=== PATIENT | female | born 1970 | race African-American/Black ===

== ENCOUNTER 2021-09-05 12:58 | Inpatient (IN) | payer MEDICAID ==
[~2021-09-05] VITALS: Ht 165.1 cm; Wt 121.7 kg
[2021-09-05 13:45] LABS: Basophils # (auto) 0.1 10 ^3/uL (0-0.2); Basophils % (auto) 0.8 % (0.0-2.0); Eosinophils # (auto) 0.1 10 ^3/uL (0-0.8); Hemoglobin 10.7 g/dL (12.2-16.2); Monocytes # (auto) 0.6 10 ^3/uL (0-1.3); Neutrophils # (auto) 3.4 10 ^3/uL (1.6-8.6)
[2021-09-05 13:47] LABS: Eosinophils % (auto) 1.1 % (0.0-7.0); Hematocrit 34.1 % (36.0-46.0); Lymphocytes # (auto) 2.5 10 ^3/uL (0.4-5.4); Lymphocytes % (auto) 37.9 % (10.0-50.0); Mean Corpuscular Hemoglobin 25.3 pg (28.0-32.0); Mean Corpuscular Hgb Conc. 31.5 g/dL (32.0-36.0); Mean Corpuscular Volume 80.6 fL (80.0-100.0); Neutrophils % (auto) 51.2 % (37.0-80.0); Nucleated Red Blood Cells % 0.1 %; Red Blood Cells 4.24 10^6/uL (4.0-5.20); Red Cell Distribution Width 21.5 % (11.8-14.3); White Blood Cell 6.6 10^3/uL (4.4-10.8)
[2021-09-05 14:01] LABS: Albumin 2.7 g/dL (3.4-5.0); Calcium 8.2 mg/dL (8.5-10.1); Magnesium 2.2 mg/dL (1.6-2.6); Potassium 3.4 mmol/L (3.5-5.1)
[2021-09-05 14:08] LABS: Total Protein 7.5 g/dL (6.4-8.2)
[2021-09-05] MEDS ORDERED: FUROSEMIDE 40 MG/4 ML VIAL IV ONE (16:30)
[2021-09-05] MEDS ORDERED: SPIRONOLACTONE 25 MG TAB PO ONE (16:30)
[2021-09-05] MEDS ORDERED: NITROGLYCERIN 0.4 MG SL TAB SL PRN ×2 (17:15→18:30)
[2021-09-05] MEDS ORDERED: MORPHINE SULFATE INJECTION 2 MG/ML SYRG IV PRN ×3 (17:15→18:30)
[2021-09-05] MEDS ORDERED: BUMETANIDE 2.5mg/10ml (0.25 mg/ml) INJ IV ONE (17:30)
[2021-09-05] MEDS ORDERED: POTASSIUM CHL 20 Meq TABLET PO ONE (18:00)
[2021-09-05] MEDS ORDERED: IOHEXOL 350 MG/ML 100ML IJ ONE (18:19)
[2021-09-05] MEDS ORDERED: ACETAMINOPHEN 325 MG TAB PO PRN (18:30)
[2021-09-05] MEDS ORDERED: BUDESONIDE (INHALATION) 0.5 MG/2 ML NEB NEB ONE (18:30)
[2021-09-05] MEDS ORDERED: LORazepam 0.5 MG TAB PO PRN (18:30)
[2021-09-05] MEDS ORDERED: levoFLOXacin 750MG 150 ML IV ONE (18:30)
[2021-09-05] MEDS ORDERED: IPRATROPIUM BROM 0.5 MG/2.5ML INH SOL NEB ONE (18:30)
[2021-09-05] MEDS ORDERED: METOPROLOL TARTRATE 25 MG TAB PO ONE (18:30)
[2021-09-05] MEDS ORDERED: DOCUSATE SOD 100 MG CAP PO PRN (18:30)
[2021-09-05] MEDS ORDERED: FAMOTIDINE (10MG/ML) 2ML VL IV ONE (18:30)
[2021-09-05] MEDS ORDERED: LABETALOL HCL 5 MG/ML 4ML SYRINGE IV PRN (18:30)
[2021-09-05] MEDS ORDERED: ASPirin 81 mg TAB PO ONE (18:30)
[2021-09-05 19:11] LABS: INR 1.2 (0.9-1.15)
[2021-09-05] MEDS: METOPROLOL TARTRATE 25 MG TAB PO SCH (22:00)
[2021-09-05] MEDS ORDERED: IPRATROPIUM BROM 0.5 MG/2.5ML INH SOL NEB SCH (22:00)
[2021-09-05] MEDS ORDERED: BUDESONIDE (INHALATION) 0.5 MG/2 ML NEB NEB SCH (22:00)
[2021-09-05 22:46] VITALS: BP 96/70
[2021-09-05 23:00] VITALS: BP 96/70
[2021-09-05] MEDS: FAMOTIDINE (10MG/ML) 2ML VL IV SCH (23:24)
[2021-09-05] MEDS: APIXABAN 5 MG TAB PO SCH (23:29)
[2021-09-05] MEDS: ATORVASTATIN 20 MG TAB PO SCH (23:29)
[2021-09-05] MEDS ORDERED: SPIR25TA8 PO (23:31)
[2021-09-05] MEDS ORDERED: LEVO750T64 PO (23:31)
[2021-09-05] MEDS ORDERED: ATOR-47 PO (23:31)
[2021-09-05] MEDS ORDERED: FERR325T20 PO (23:31)
[2021-09-05] MEDS ORDERED: FURO80TA3 PO (23:31)
[2021-09-05] MEDS ORDERED: CARV3.1240 PO (23:31)
[2021-09-06] MEDS ORDERED: LEVALBUTEROL HCL 1.25 MG/3 ML NEB NEB SCH
[2021-09-06 00:38] LABS: Urine Bacteria FEW /hpf (None Seen); Urine Blood 3+ /uL (Negative); Urine WBC 106 /hpf (0 - 5)
[2021-09-06 00:45] LABS: Amphetamine Screen, Urine NEGATIVE (NEGATIVE); Barbiturate Scree,Urine NEGATIVE (NEGATIVE); Benzodiazephine Screen, Urine NEGATIVE (NEGATIVE); Cannabinoid Screen, Urine POSITIVE (NEGATIVE); Cocaine Screen, Urine NEGATIVE (NEGATIVE); Opiate Scree,Urine NEGATIVE (NEGATIVE); Phencyclidine Screen, Urine POSITIVE (NEGATIVE); Urine Specific Gravity > 1.050 (1.001-1.035)
[2021-09-06 05:00] VITALS: BP 100/71
[2021-09-06] MEDS ORDERED: BUMETANIDE 2.5mg/10ml (0.25 mg/ml) INJ IV SCH (06:00)
[2021-09-06] MEDS: ALUM & MAG HYDROX-SIMETH LIQ(MAALOX) 30 ML PO PRN (06:47)
[2021-09-06 07:05] LABS: Basophils # (auto) 0.1 10 ^3/uL (0-0.2); Basophils % (auto) 1.2 % (0.0-2.0); Eosinophils # (auto) 0 10 ^3/uL (0-0.8); Eosinophils % (auto) 0.5 % (0.0-7.0); Hematocrit 35.6 % (36.0-46.0); Hemoglobin 11.3 g/dL (12.2-16.2); Lymphocytes # (auto) 3.4 10 ^3/uL (0.4-5.4); Lymphocytes % (auto) 41.2 % (10.0-50.0); Mean Corpuscular Hemoglobin 25.8 pg (28.0-32.0); Mean Corpuscular Hgb Conc. 31.8 g/dL (32.0-36.0); Monocytes % (auto) 11.9 % (0.0-12.0); Neutrophils # (auto) 3.7 10 ^3/uL (1.6-8.6); Neutrophils % (auto) 45.2 % (37.0-80.0); Nucleated Red Blood Cells % 0.1 %; Red Blood Cells 4.39 10^6/uL (4.0-5.20); White Blood Cell 8.2 10^3/uL (4.4-10.8)
[2021-09-06 07:06] LABS: Red Cell Distribution Width 20.9 % (11.8-14.3)
[2021-09-06 07:21] LABS: Potassium 4.5 mmol/L (3.5-5.1)
[2021-09-06 07:25] LABS: INR 1.47 (0.9-1.15); Partial Thromboplastin Time 34.1 sec (23.6-33.0)
[2021-09-06 07:34] LABS: Albumin 2.8 g/dL (3.4-5.0); BUN/Creatinine Ratio 13.6; Bilirubin, Total 1.2 mg/dL (0.2-1.0); Calcium 8.4 mg/dL (8.5-10.1); Magnesium 2.4 mg/dL (1.6-2.6); Phosphorus 3.3 mg/dL (2.5-4.90); Total Protein 7.6 g/dL (6.4-8.2)
[2021-09-06 08:30] VITALS: BP 112/60
[2021-09-06] MEDS: ASPirin 81 mg TAB PO SCH (09:34)
[2021-09-06] MEDS: FAMOTIDINE (10MG/ML) 2ML VL IV SCH ×2 (09:34→22:58)
[2021-09-06] MEDS: APIXABAN 5 MG TAB PO SCH (09:34)
[2021-09-06] MEDS: METOPROLOL TARTRATE 25 MG TAB PO SCH (09:36)
[2021-09-06] MEDS ORDERED: LISINOPRIL 5 MG TAB PO SCH (10:00)
[2021-09-06] MEDS ORDERED: POTASSIUM CHL 20 Meq TABLET PO SCH (10:00)
[2021-09-06] MEDS ORDERED: levoFLOXacin 750MG 150 ML IV SCH (10:00)
[2021-09-06 12:30] VITALS: BP 88/62
[2021-09-06] MEDS ORDERED: VANCOMYCIN PER PHARMACY 0 MG IV SCH (13:15)
[2021-09-06] MEDS ORDERED: POTASSIUM EFFERVESENT TAB 25 MEQ PO ONE (13:30)
[2021-09-06] MEDS ORDERED: VANCOMYCIN 1GM/250ML 250 ML IV ONE (13:37)
[2021-09-06] MEDS: DOBUTamine 1000MCG/ML 250 ML IV SCH (13:42)
[2021-09-06] MEDS ORDERED: VANCOMYCIN HCL 500MG/5ML ORAL SOL PO ONE (13:45)
[2021-09-06] MEDS: CEFEPIME 1 GM in SODIUM CHL 0.9% 50 ML IV SCH (14:47)
[2021-09-06] MEDS: metroNIDAZOLE 500 MG TAB PO SCH ×2 (14:47→22:58)
[2021-09-06 16:04] LABS: Urine Bacteria FEW /hpf (None Seen); Urine Blood 3+ /uL (Negative); Urine Hyaline Cast FEW /lpf (0 - 2); Urine Mucus FEW (None Seen); Urine Specific Gravity 1.042 (1.001-1.035); Urine WBC 129 /hpf (0 - 5)
[2021-09-06 16:15] LABS: Protein, Urine 236.7 mg/dL (0.0-11.9)
[2021-09-06 17:00] VITALS: BP 92/57
[2021-09-06] MEDS: FUROSEMIDE 40 MG/4 ML VIAL IV SCH (17:22)
[2021-09-06] MEDS: VANCOMYCIN HCL 500MG/5ML ORAL SOL PO SCH ×2 (17:23→22:58)
[2021-09-06 22:00] VITALS: BP 90/64
[2021-09-06] MEDS: ATORVASTATIN 20 MG TAB PO SCH (22:59)
[2021-09-06] MEDS: CARVEDILOL 3.125 MG TAB PO SCH (23:02)
[2021-09-07] VITALS (7 sets, daily range): BP systolic 93–116; BP diastolic 57–76
[2021-09-07] MEDS: CEFEPIME 1 GM in SODIUM CHL 0.9% 50 ML IV SCH ×2 (00:18→06:03)
[2021-09-07] MEDS: DOBUTamine 1000MCG/ML 250 ML IV SCH ×3 (01:57→22:42)
[2021-09-07] MEDS ORDERED: VANCOMYCIN 1GM/250ML 250 ML IV SCH (05:00)
[2021-09-07] MEDS: metroNIDAZOLE 500 MG TAB PO SCH (06:03)
[2021-09-07] MEDS: FUROSEMIDE 40 MG/4 ML VIAL IV SCH ×2 (06:03→18:00)
[2021-09-07] MEDS: VANCOMYCIN HCL 500MG/5ML ORAL SOL PO SCH ×2 (06:11→12:11)
[2021-09-07 06:48] LABS: Basophils # (auto) 0.1 10 ^3/uL (0-0.2); Eosinophils # (auto) 0.1 10 ^3/uL (0-0.8); Hemoglobin 10.1 g/dL (12.2-16.2); Lymphocytes # (auto) 2.1 10 ^3/uL (0.4-5.4); Nucleated Red Blood Cells % 0.1 %
[2021-09-07 06:52] LABS: Basophils % (auto) 1.3 % (0.0-2.0); Eosinophils % (auto) 1.7 % (0.0-7.0); Hematocrit 31.8 % (36.0-46.0); Lymphocytes % (auto) 28.1 % (10.0-50.0); Mean Corpuscular Hemoglobin 25.4 pg (28.0-32.0); Mean Corpuscular Hgb Conc. 31.8 g/dL (32.0-36.0); Mean Corpuscular Volume 79.8 fL (80.0-100.0); Monocytes # (auto) 0.8 10 ^3/uL (0-1.3); Monocytes % (auto) 11.4 % (0.0-12.0); Neutrophils # (auto) 4.3 10 ^3/uL (1.6-8.6); Neutrophils % (auto) 57.5 % (37.0-80.0); Red Blood Cells 3.98 10^6/uL (4.0-5.20); White Blood Cell 7.4 10^3/uL (4.4-10.8)
[2021-09-07 07:08] LABS: BUN/Creatinine Ratio 13.4; Calcium 8.1 mg/dL (8.5-10.1); Potassium 4.3 mmol/L (3.5-5.1)
[2021-09-07] MEDS: FAMOTIDINE (10MG/ML) 2ML VL IV SCH (10:29)
[2021-09-07] MEDS: ENOXAPARIN SOD 40 MG/0.4 ML SYRINGE SC SCH (10:30)
[2021-09-07] MEDS: ASPirin 81 mg TAB PO SCH (10:30)
[2021-09-07] MEDS: CARVEDILOL 3.125 MG TAB PO SCH ×2 (10:30→23:34)
[2021-09-07] MEDS ORDERED: DEXTROSE (50%) 50ML SYRG IV PRN (13:45)
[2021-09-07 14:04] LABS: Hepatitis A Ab IgM Negative
[2021-09-07 14:20] LABS: Hepatitis B Core IgM Negative
[2021-09-07] MEDS: InsuLIN REG 1unit/0.01ml Soln (100units/ml) SC SCH ×2 (17:00→22:00)
[2021-09-07] MEDS: ACCU-CHEK COMFORT CURVE STRIP VI SCH ×2 (17:00→22:00)
[2021-09-07] MEDS: VANCOMYCIN HCL 125MG/5ML ORAL SOL PO SCH ×2 (18:00→23:33)
[2021-09-07 19:49] LABS: INR 1.44 (0.9-1.15); Partial Thromboplastin Time 34.3 sec (23.6-33.0)
[2021-09-07] MEDS ORDERED: CEFEPIME 1 GM in SODIUM CHL 0.9% 50 ML IV SCH (22:00)
[2021-09-07] MEDS: ATORVASTATIN 20 MG TAB PO SCH (23:34)
[2021-09-07] MEDS: SACUBITRIL-VALSARTAN 24mg/26mg TAB PO SCH (23:34)
[2021-09-08] MEDS: ENOXAPARIN SOD 40 MG/0.4 ML SYRINGE SC SCH ×3 (01:05→21:02)
[2021-09-08 05:00] VITALS: BP 108/59
[2021-09-08] MEDS: VANCOMYCIN HCL 125MG/5ML ORAL SOL PO SCH ×4 (06:00→20:48)
[2021-09-08 06:25] LABS: Basophils # (auto) 0.1 10 ^3/uL (0-0.2); Eosinophils # (auto) 0.1 10 ^3/uL (0-0.8); Monocytes # (auto) 0.7 10 ^3/uL (0-1.3); Neutrophils # (auto) 3.9 10 ^3/uL (1.6-8.6); Nucleated Red Blood Cells % 0.1 %; White Blood Cell 6.9 10^3/uL (4.4-10.8)
[2021-09-08 06:29] LABS: Basophils % (auto) 1.2 % (0.0-2.0); Eosinophils % (auto) 1.9 % (0.0-7.0); Hematocrit 32.2 % (36.0-46.0); Hemoglobin 10.2 g/dL (12.2-16.2); Lymphocytes # (auto) 2.1 10 ^3/uL (0.4-5.4); Lymphocytes % (auto) 30.8 % (10.0-50.0); Mean Corpuscular Hgb Conc. 31.7 g/dL (32.0-36.0); Mean Corpuscular Volume 78.8 fL (80.0-100.0); Neutrophils % (auto) 56.1 % (37.0-80.0); Red Blood Cells 4.08 10^6/uL (4.0-5.20); Red Cell Distribution Width 20.8 % (11.8-14.3)
[2021-09-08 06:34] LABS: INR 1.44 (0.9-1.15)
[2021-09-08 06:46] LABS: Potassium 4.5 mmol/L (3.5-5.1)
[2021-09-08 06:52] LABS: Albumin 2.6 g/dL (3.4-5.0); BUN/Creatinine Ratio 14.2; Bilirubin, Total 1.3 mg/dL (0.2-1.0); Calcium 8.5 mg/dL (8.5-10.1); Magnesium 1.9 mg/dL (1.6-2.6)
[2021-09-08] MEDS: InsuLIN REG 1unit/0.01ml Soln (100units/ml) SC SCH ×4 (07:00→21:13)
[2021-09-08] MEDS: ACCU-CHEK COMFORT CURVE STRIP VI SCH ×4 (07:20→21:14)
[2021-09-08] MEDS: FUROSEMIDE 40 MG/4 ML VIAL IV SCH ×2 (07:34→18:19)
[2021-09-08 09:06] VITALS: BP 96/54
[2021-09-08] MEDS: CARVEDILOL 3.125 MG TAB PO SCH ×2 (10:00→22:00)
[2021-09-08] MEDS: SACUBITRIL-VALSARTAN 24mg/26mg TAB PO SCH (10:00)
[2021-09-08] MEDS: ASPirin 81 mg TAB PO SCH (10:00)
[2021-09-08 13:14] VITALS: BP 99/73
[2021-09-08] MEDS ORDERED: CHOLECALCIFEROL (VITD3) 2,000 UNIT CAP/TAB PO ONE (13:15)
[2021-09-08] MEDS ORDERED: MAGNESIUM SULFATE 1GM/100ML 100 ML IV ONE (13:15)
[2021-09-08 16:32] VITALS: BP 104/66
[2021-09-08] MEDS: ATORVASTATIN 20 MG TAB PO SCH (20:49)
[2021-09-08] MEDS ORDERED: SACUBITRIL-VALSARTAN 24mg/26mg TAB PO SCH (22:00)
[2021-09-09 05:00] VITALS: BP 98/64
[2021-09-09] MEDS: FUROSEMIDE 40 MG/4 ML VIAL IV SCH ×3 (05:21→18:11)
[2021-09-09] MEDS: VANCOMYCIN HCL 125MG/5ML ORAL SOL PO SCH ×4 (06:05→21:54)
[2021-09-09] MEDS: InsuLIN REG 1unit/0.01ml Soln (100units/ml) SC SCH ×4 (06:16→22:00)
[2021-09-09] MEDS: ACCU-CHEK COMFORT CURVE STRIP VI SCH ×4 (06:17→21:54)
[2021-09-09 07:07] LABS: Albumin 2.5 g/dL (3.4-5.0); Calcium 8.2 mg/dL (8.5-10.1); Magnesium 2.6 mg/dL (1.6-2.6)
[2021-09-09 07:11] LABS: BUN/Creatinine Ratio 15.9; Total Protein 6.5 g/dL (6.4-8.2)
[2021-09-09] MEDS: ASPirin 81 mg TAB PO SCH (09:28)
[2021-09-09] MEDS: CHOLECALCIFEROL (VITD3) 2,000 UNIT CAP/TAB PO SCH (09:29)
[2021-09-09] MEDS: ENOXAPARIN SOD 40 MG/0.4 ML SYRINGE SC SCH ×2 (09:31→21:52)
[2021-09-09 09:46] VITALS: BP 87/64
[2021-09-09] MEDS ORDERED: DOXYCYCLINE 100 MG TAB/CAP PO ONE (10:45)
[2021-09-09] MEDS: CARVEDILOL 3.125 MG TAB PO SCH ×2 (12:17→22:00)
[2021-09-09 13:12] VITALS: BP 91/49
[2021-09-09] MEDS: CEFEPIME 1 GM in SODIUM CHL 0.9% 50 ML IV SCH ×2 (14:00→21:52)
[2021-09-09 16:46] VITALS: BP 105/70
[2021-09-09] MEDS: ATORVASTATIN 20 MG TAB PO SCH (21:53)
[2021-09-09] MEDS: DOXYCYCLINE 100 MG TAB/CAP PO SCH (21:53)
[2021-09-09 22:00] VITALS: BP 90/65
[2021-09-09] MEDS: ALUM & MAG HYDROX-SIMETH LIQ(MAALOX) 30 ML PO PRN (22:08)
[2021-09-10] MEDS: ONDANSETRON HCL 4 MG/2 ML VIAL IV PRN (01:09)
[2021-09-10 05:00] VITALS: BP 106/76
[2021-09-10] MEDS: ACCU-CHEK COMFORT CURVE STRIP VI SCH ×4 (06:05→23:12)
[2021-09-10] MEDS: VANCOMYCIN HCL 125MG/5ML ORAL SOL PO SCH ×4 (06:05→23:40)
[2021-09-10] MEDS: CEFEPIME 1 GM in SODIUM CHL 0.9% 50 ML IV SCH ×3 (06:05→23:44)
[2021-09-10] MEDS: FUROSEMIDE 40 MG/4 ML VIAL IV SCH ×2 (06:06→18:16)
[2021-09-10] MEDS: InsuLIN REG 1unit/0.01ml Soln (100units/ml) SC SCH ×4 (06:35→22:00)
[2021-09-10 08:06] LABS: Immunoglobulin G, Serum 1488 mg/dL (586-1602)
[2021-09-10 08:49] LABS: Albumin 2.5 g/dL (3.4-5.0); Calcium 8.1 mg/dL (8.5-10.1); Potassium 4.3 mmol/L (3.5-5.1)
[2021-09-10 08:53] LABS: BUN/Creatinine Ratio 16.8; Bilirubin, Total 1.1 mg/dL (0.2-1.0); Total Protein 6.5 g/dL (6.4-8.2)
[2021-09-10 09:00] VITALS: BP 118/59
[2021-09-10] MEDS: ENOXAPARIN SOD 40 MG/0.4 ML SYRINGE SC SCH ×2 (10:00→23:41)
[2021-09-10] MEDS: ASPirin 81 mg TAB PO SCH (10:24)
[2021-09-10] MEDS: CARVEDILOL 3.125 MG TAB PO SCH ×2 (10:25→23:41)
[2021-09-10] MEDS: CHOLECALCIFEROL (VITD3) 2,000 UNIT CAP/TAB PO SCH (10:25)
[2021-09-10] MEDS: DOXYCYCLINE 100 MG TAB/CAP PO SCH ×2 (10:26→23:41)
[2021-09-10 13:00] VITALS: BP 102/77
[2021-09-10 17:00] VITALS: BP 108/77
[2021-09-10 21:47] VITALS: BP 100/56
[2021-09-10] MEDS: ATORVASTATIN 20 MG TAB PO SCH (23:41)
[2021-09-11 05:00] VITALS: BP 100/68
[2021-09-11] MEDS: VANCOMYCIN HCL 125MG/5ML ORAL SOL PO SCH ×4 (06:06→22:42)
[2021-09-11] MEDS: CEFEPIME 1 GM in SODIUM CHL 0.9% 50 ML IV SCH ×3 (06:06→22:49)
[2021-09-11] MEDS: FUROSEMIDE 40 MG/4 ML VIAL IV SCH (06:06)
[2021-09-11] MEDS: ACCU-CHEK COMFORT CURVE STRIP VI SCH ×4 (06:40→22:51)
[2021-09-11] MEDS: InsuLIN REG 1unit/0.01ml Soln (100units/ml) SC SCH ×4 (06:40→22:00)
[2021-09-11 09:22] VITALS: BP 105/75
[2021-09-11 09:33] LABS: Potassium 4.3 mmol/L (3.5-5.1)
[2021-09-11 09:52] LABS: Albumin 2.7 g/dL (3.4-5.0); Bilirubin, Total 1.2 mg/dL (0.2-1.0); Calcium 8.4 mg/dL (8.5-10.1); Total Protein 7.1 g/dL (6.4-8.2)
[2021-09-11] MEDS: CARVEDILOL 3.125 MG TAB PO SCH ×2 (10:00→22:46)
[2021-09-11] MEDS: ENOXAPARIN SOD 40 MG/0.4 ML SYRINGE SC SCH (10:00)
[2021-09-11] MEDS: CHOLECALCIFEROL (VITD3) 2,000 UNIT CAP/TAB PO SCH (10:00)
[2021-09-11] MEDS: DOXYCYCLINE 100 MG TAB/CAP PO SCH ×2 (10:00→22:46)
[2021-09-11] MEDS: ASPirin 81 mg TAB PO SCH (10:00)
[2021-09-11] MEDS ORDERED: VANCOMYCIN PER PHARMACY 0 MG IV SCH (11:00)
[2021-09-11] MEDS: HYDROcodone-ACET 5/325MG TAB PO PRN ×2 (11:03→22:44)
[2021-09-11] MEDS ORDERED: OMNIPAQUE ORAL SOLN 500ml 12mg/ml PO ONE (11:52)
[2021-09-11] MEDS ORDERED: ENOXAPARIN SOD 40 MG/0.4 ML SYRINGE SC ONE (12:00)
[2021-09-11] MEDS ORDERED: VANCOMYCIN 1GM/250ML 250 ML IV SCH (12:00)
[2021-09-11] MEDS ORDERED: IOHEXOL 300 MG/ML 100ML BOTTLE IJ ONE (15:27)
[2021-09-11 17:11] VITALS: BP 99/64
[2021-09-11 22:00] VITALS: BP 98/65
[2021-09-11] MEDS: ATORVASTATIN 20 MG TAB PO SCH (22:45)
[2021-09-11] MEDS: ONDANSETRON HCL 4 MG/2 ML VIAL IV PRN (22:58)
[2021-09-12 05:00] VITALS: BP 96/60
[2021-09-12] MEDS: HYDROcodone-ACET 5/325MG TAB PO PRN ×3 (05:22→21:36)
[2021-09-12] MEDS: ONDANSETRON HCL 4 MG/2 ML VIAL IV PRN ×2 (05:22→21:35)
[2021-09-12] MEDS: CEFEPIME 1 GM in SODIUM CHL 0.9% 50 ML IV SCH ×3 (05:41→21:32)
[2021-09-12 06:21] LABS: Potassium 4.8 mmol/L (3.5-5.1)
[2021-09-12 06:26] LABS: Albumin 2.6 g/dL (3.4-5.0); BUN/Creatinine Ratio 17.1; Calcium 8.6 mg/dL (8.5-10.1)
[2021-09-12] MEDS: VANCOMYCIN HCL 125MG/5ML ORAL SOL PO SCH ×4 (06:28→21:34)
[2021-09-12] MEDS: ACCU-CHEK COMFORT CURVE STRIP VI SCH ×4 (06:30→22:25)
[2021-09-12] MEDS: InsuLIN REG 1unit/0.01ml Soln (100units/ml) SC SCH ×4 (06:30→22:00)
[2021-09-12 06:52] LABS: Bilirubin, Total 1.2 mg/dL (0.2-1.0); Total Protein 6.6 g/dL (6.4-8.2)
[2021-09-12 08:29] VITALS: BP 97/65
[2021-09-12] MEDS: ASPirin 81 mg TAB PO SCH (09:40)
[2021-09-12] MEDS: DOXYCYCLINE 100 MG TAB/CAP PO SCH ×2 (09:41→21:35)
[2021-09-12] MEDS: CARVEDILOL 3.125 MG TAB PO SCH ×2 (09:41→22:00)
[2021-09-12] MEDS: ENOXAPARIN SOD 40 MG/0.4 ML SYRINGE SC SCH (09:42)
[2021-09-12] MEDS: CHOLECALCIFEROL (VITD3) 2,000 UNIT CAP/TAB PO SCH (09:42)
[2021-09-12 12:38] VITALS: BP 107/62
[2021-09-12 17:16] VITALS: BP 86/52
[2021-09-12] MEDS: FUROSEMIDE 40 MG/4 ML VIAL IV SCH (17:32)
[2021-09-12] MEDS: ATORVASTATIN 20 MG TAB PO SCH (21:34)
[2021-09-12 22:00] VITALS: BP 96/66
[2021-09-12] MEDS ORDERED: APIXABAN 5 MG TAB PO SCH (22:00)
[2021-09-13 04:39] VITALS: BP 94/58
[2021-09-13] MEDS: ONDANSETRON HCL 4 MG/2 ML VIAL IV PRN ×2 (05:02→13:52)
[2021-09-13] MEDS: CEFEPIME 1 GM in SODIUM CHL 0.9% 50 ML IV SCH ×3 (05:52→22:04)
[2021-09-13] MEDS: VANCOMYCIN HCL 125MG/5ML ORAL SOL PO SCH ×4 (05:52→22:03)
[2021-09-13] MEDS: ACCU-CHEK COMFORT CURVE STRIP VI SCH ×4 (05:58→21:31)
[2021-09-13] MEDS: InsuLIN REG 1unit/0.01ml Soln (100units/ml) SC SCH ×4 (06:00→21:30)
[2021-09-13 06:39] LABS: Albumin 2.3 g/dL (3.4-5.0); BUN/Creatinine Ratio 14.1; Calcium 8.1 mg/dL (8.5-10.1); Potassium 4.5 mmol/L (3.5-5.1)
[2021-09-13 06:42] LABS: Bilirubin, Total 1.1 mg/dL (0.2-1.0); Total Protein 6.3 g/dL (6.4-8.2)
[2021-09-13 09:00] VITALS: BP 96/66
[2021-09-13] MEDS: CARVEDILOL 3.125 MG TAB PO SCH ×2 (10:00→22:00)
[2021-09-13] MEDS: FUROSEMIDE 40 MG/4 ML VIAL IV SCH ×2 (10:03→17:48)
[2021-09-13] MEDS: ASPirin 81 mg TAB PO SCH (10:08)
[2021-09-13] MEDS: DOXYCYCLINE 100 MG TAB/CAP PO SCH ×2 (10:08→22:02)
[2021-09-13] MEDS: CHOLECALCIFEROL (VITD3) 2,000 UNIT CAP/TAB PO SCH (10:08)
[2021-09-13] MEDS: ENOXAPARIN SOD 40 MG/0.4 ML SYRINGE SC SCH (10:09)
[2021-09-13 12:50] VITALS: BP 89/54
[2021-09-13 17:01] VITALS: BP 109/64
[2021-09-13] MEDS: HYDROcodone-ACET 5/325MG TAB PO PRN (17:44)
[2021-09-13 22:00] VITALS: BP 95/67
[2021-09-13] MEDS: ATORVASTATIN 20 MG TAB PO SCH (22:02)
[2021-09-14 05:00] VITALS: BP 105/69
[2021-09-14] MEDS: FUROSEMIDE 40 MG/4 ML VIAL IV SCH ×2 (05:25→17:55)
[2021-09-14] MEDS: CEFEPIME 1 GM in SODIUM CHL 0.9% 50 ML IV SCH ×3 (05:25→21:12)
[2021-09-14] MEDS: VANCOMYCIN HCL 125MG/5ML ORAL SOL PO SCH ×4 (05:26→21:12)
[2021-09-14] MEDS: ACCU-CHEK COMFORT CURVE STRIP VI SCH ×4 (06:33→21:13)
[2021-09-14] MEDS: InsuLIN REG 1unit/0.01ml Soln (100units/ml) SC SCH ×4 (06:33→22:00)
[2021-09-14 07:23] LABS: Potassium 4.5 mmol/L (3.5-5.1)
[2021-09-14 07:31] LABS: Albumin 2.3 g/dL (3.4-5.0); BUN/Creatinine Ratio 12.7; Bilirubin, Total 1.3 mg/dL (0.2-1.0); Calcium 7.9 mg/dL (8.5-10.1); Total Protein 6.5 g/dL (6.4-8.2)
[2021-09-14 08:19] VITALS: BP 122/80
[2021-09-14] MEDS: CARVEDILOL 3.125 MG TAB PO SCH ×2 (10:18→21:12)
[2021-09-14] MEDS: DOXYCYCLINE 100 MG TAB/CAP PO SCH ×2 (10:18→21:13)
[2021-09-14] MEDS: CHOLECALCIFEROL (VITD3) 2,000 UNIT CAP/TAB PO SCH (10:18)
[2021-09-14] MEDS: ASPirin 81 mg TAB PO SCH (10:18)
[2021-09-14] MEDS: ENOXAPARIN SOD 40 MG/0.4 ML SYRINGE SC SCH (10:18)
[2021-09-14 13:00] VITALS: BP 103/84
[2021-09-14] MEDS: HYDROcodone-ACET 5/325MG TAB PO PRN ×2 (14:35→21:13)
[2021-09-14] MEDS: ONDANSETRON HCL 4 MG/2 ML VIAL IV PRN (14:41)
[2021-09-14 15:26] LABS: INR 1.46 (0.9-1.15); Partial Thromboplastin Time 34.4 sec (23.6-33.0)
[2021-09-14 16:38] VITALS: BP 90/68
[2021-09-14] MEDS: ATORVASTATIN 20 MG TAB PO SCH (21:13)
[2021-09-14 22:00] VITALS: BP 87/61
[2021-09-14 23:14] VITALS: BP 92/49
[2021-09-15 05:00] VITALS: BP 95/62
[2021-09-15] MEDS: FUROSEMIDE 40 MG/4 ML VIAL IV SCH ×2 (05:42→17:34)
[2021-09-15] MEDS: CEFEPIME 1 GM in SODIUM CHL 0.9% 50 ML IV SCH (05:43)
[2021-09-15] MEDS: InsuLIN REG 1unit/0.01ml Soln (100units/ml) SC SCH ×4 (05:43→21:10)
[2021-09-15] MEDS: ACCU-CHEK COMFORT CURVE STRIP VI SCH ×4 (05:43→21:10)
[2021-09-15] MEDS: VANCOMYCIN HCL 125MG/5ML ORAL SOL PO SCH ×4 (05:43→21:10)
[2021-09-15 06:30] LABS: Albumin 2.3 g/dL (3.4-5.0); Calcium 8.1 mg/dL (8.5-10.1); Potassium 4.7 mmol/L (3.5-5.1)
[2021-09-15 06:33] LABS: BUN/Creatinine Ratio 12.6; Bilirubin, Total 1.3 mg/dL (0.2-1.0); Total Protein 6.6 g/dL (6.4-8.2)
[2021-09-15 09:00] VITALS: BP 96/64
[2021-09-15] MEDS: ASPirin 81 mg TAB PO SCH (10:14)
[2021-09-15] MEDS: CARVEDILOL 3.125 MG TAB PO SCH ×2 (10:14→21:09)
[2021-09-15] MEDS: CHOLECALCIFEROL (VITD3) 2,000 UNIT CAP/TAB PO SCH (10:14)
[2021-09-15] MEDS: DOXYCYCLINE 100 MG TAB/CAP PO SCH ×2 (10:14→21:09)
[2021-09-15] MEDS: ENOXAPARIN SOD 40 MG/0.4 ML SYRINGE SC SCH (10:15)
[2021-09-15 12:50] VITALS: BP 97/70
[2021-09-15] MEDS: CEFEPIME 2 GM in SODIUM CHL 0.9% 50 ML IV SCH (14:30)
[2021-09-15 16:37] VITALS: BP 85/66
[2021-09-15] MEDS: ATORVASTATIN 20 MG TAB PO SCH (21:09)
[2021-09-15 22:00] VITALS: BP 92/60
[2021-09-15] MEDS: ONDANSETRON HCL 4 MG/2 ML VIAL IV PRN (22:09)
[2021-09-15] MEDS: HYDROcodone-ACET 5/325MG TAB PO PRN (22:10)
[2021-09-16] MEDS: CEFEPIME 2 GM in SODIUM CHL 0.9% 50 ML IV SCH ×2 (01:26→14:30)
[2021-09-16 05:30] VITALS: BP 85/57
[2021-09-16] MEDS: FUROSEMIDE 40 MG/4 ML VIAL IV SCH (05:33)
[2021-09-16] MEDS: ACCU-CHEK COMFORT CURVE STRIP VI SCH ×4 (05:34→21:37)
[2021-09-16] MEDS: InsuLIN REG 1unit/0.01ml Soln (100units/ml) SC SCH ×4 (05:34→21:37)
[2021-09-16] MEDS: VANCOMYCIN HCL 125MG/5ML ORAL SOL PO SCH ×4 (05:34→21:27)
[2021-09-16 06:05] VITALS: BP 91/58
[2021-09-16 09:00] VITALS: BP 99/73
[2021-09-16] MEDS: CHOLECALCIFEROL (VITD3) 2,000 UNIT CAP/TAB PO SCH (09:24)
[2021-09-16] MEDS: DOXYCYCLINE 100 MG TAB/CAP PO SCH ×2 (09:24→21:28)
[2021-09-16] MEDS: ASPirin 81 mg TAB PO SCH (09:24)
[2021-09-16] MEDS: CARVEDILOL 3.125 MG TAB PO SCH (09:25)
[2021-09-16] MEDS: ENOXAPARIN SOD 40 MG/0.4 ML SYRINGE SC SCH (09:25)
[2021-09-16 10:18] LABS: Hematocrit 30.1 % (36.0-46.0); Hemoglobin 9.7 g/dL (12.2-16.2); Mean Corpuscular Hemoglobin 25.4 pg (28.0-32.0); Mean Corpuscular Hgb Conc. 32.2 g/dL (32.0-36.0); Red Blood Cells 3.81 10^6/uL (4.0-5.20)
[2021-09-16 10:19] LABS: Red Cell Distribution Width 21.5 % (11.8-14.3)
[2021-09-16 10:22] LABS: Basophils % (manual) 0 (0.0-2.0); Blast Cells 0; Metamyelocytes % 0; Myelocytes % 0; Promyelocytes % 0; Reactive Lymphocytes 0
[2021-09-16 10:38] LABS: Calcium 8.3 mg/dL (8.5-10.1); Potassium 4.6 mmol/L (3.5-5.1)
[2021-09-16 10:44] LABS: Albumin 2.2 g/dL (3.4-5.0); BUN/Creatinine Ratio 12.8; Bilirubin, Total 1.2 mg/dL (0.2-1.0); Total Protein 6.8 g/dL (6.4-8.2)
[2021-09-16 12:19] LABS: Band Neutrophils % (manual) 3; Eosinophils % (manual) 1 (0-7); Lymphocytes % (manual) 37 (10.0-50.0); Monocytes % (manual) 5 (0-12)
[2021-09-16 13:00] VITALS: BP 107/57
[2021-09-16] MEDS ORDERED: FUROSEMIDE 40 MG/4 ML VIAL IV SCH (13:00)
[2021-09-16] MEDS ORDERED: FUROSEMIDE INJECTION 100 MG in SODIUM CHL 0.9% 100 ML IV SCH (13:30)
[2021-09-16 17:00] VITALS: BP 104/65
[2021-09-16 17:22] LABS: Urine Bacteria FEW /hpf (None Seen); Urine Blood 2+ /uL (Negative); Urine Budding Yeast MANY /hpf (None Seen); Urine Hyaline Cast FEW /lpf (0 - 2); Urine Specific Gravity 1.022 (1.001-1.035); Urine WBC 49 /hpf (0 - 5); Urine WBC Clumps PRESENT /hpf (None Seen)
[2021-09-16] MEDS ORDERED: SPIRONOLACTONE 25 MG TAB PO SCH (18:00)
[2021-09-16] MEDS: DOBUTamine 1000MCG/ML 250 ML IV SCH (19:15)
[2021-09-16 20:44] LABS: Sodium Urine < 5 mmol/L (40-220)
[2021-09-16 20:49] LABS: Creatinine, Urine 218 mg/dL (30.0-125.0); Protein, Urine 237.5 mg/dL (0.0-11.9)
[2021-09-16] MEDS: ATORVASTATIN 20 MG TAB PO SCH (21:28)
[2021-09-16 22:00] VITALS: BP 115/66
[2021-09-16] MEDS ORDERED: SACUBITRIL-VALSARTAN 24mg/26mg TAB PO SCH (22:00)
[2021-09-16] MEDS: FUROSEMIDE INJECTION 100 MG in SODIUM CHL 0.9% 100 ML IV SCH (22:30)
[2021-09-16] MEDS: ONDANSETRON HCL 4 MG/2 ML VIAL IV PRN (23:56)
[2021-09-17] VITALS (10 sets, daily range): BP systolic 90–110; BP diastolic 60–77
[2021-09-17] MEDS: CEFEPIME 2 GM in SODIUM CHL 0.9% 50 ML IV SCH ×3 (02:07→21:33)
[2021-09-17 02:16] LABS: Urine Bacteria FEW /hpf (None Seen); Urine Blood 2+ /uL (Negative); Urine Specific Gravity 1.017 (1.001-1.035); Urine WBC 12 /hpf (0 - 5)
[2021-09-17] MEDS ORDERED: DIGOXIN (250MCG/ML) 2 ML AMPULE IV ONE ×2 (05:15→05:45)
[2021-09-17] MEDS: InsuLIN REG 1unit/0.01ml Soln (100units/ml) SC SCH ×4 (06:37→22:00)
[2021-09-17] MEDS: FUROSEMIDE INJECTION 100 MG in SODIUM CHL 0.9% 100 ML IV SCH ×2 (06:37→15:00)
[2021-09-17] MEDS: VANCOMYCIN HCL 125MG/5ML ORAL SOL PO SCH ×4 (06:37→21:33)
[2021-09-17] MEDS: ACCU-CHEK COMFORT CURVE STRIP VI SCH ×4 (06:37→22:03)
[2021-09-17 06:54] LABS: Basophils # (auto) 0.1 10 ^3/uL (0-0.2); Eosinophils # (auto) 0 10 ^3/uL (0-0.8); Hematocrit 28.9 % (36.0-46.0); Monocytes # (auto) 1.1 10 ^3/uL (0-1.3); Monocytes % (auto) 12.2 % (0.0-12.0)
[2021-09-17 06:55] LABS: Basophils % (auto) 1.2 % (0.0-2.0); Eosinophils % (auto) 0.6 % (0.0-7.0); Hemoglobin 9.4 g/dL (12.2-16.2); Lymphocytes # (auto) 2.1 10 ^3/uL (0.4-5.4); Lymphocytes % (auto) 23.8 % (10.0-50.0); Mean Corpuscular Hemoglobin 25.7 pg (28.0-32.0); Mean Corpuscular Hgb Conc. 32.6 g/dL (32.0-36.0); Mean Corpuscular Volume 78.8 fL (80.0-100.0); Neutrophils # (auto) 5.5 10 ^3/uL (1.6-8.6); Neutrophils % (auto) 62.2 % (37.0-80.0); Nucleated Red Blood Cells % 0.1 %; Red Blood Cells 3.67 10^6/uL (4.0-5.20); White Blood Cell 8.8 10^3/uL (4.4-10.8)
[2021-09-17 07:11] LABS: Red Cell Distribution Width 20.5 % (11.8-14.3)
[2021-09-17 07:20] LABS: Albumin 2.2 g/dL (3.4-5.0); BUN/Creatinine Ratio 14.8; Bilirubin, Total 1.3 mg/dL (0.2-1.0); Calcium 8.3 mg/dL (8.5-10.1); Total Protein 6.4 g/dL (6.4-8.2)
[2021-09-17] MEDS: ASPirin 81 mg TAB PO SCH (10:00)
[2021-09-17] MEDS: ENOXAPARIN SOD 40 MG/0.4 ML SYRINGE SC SCH (10:00)
[2021-09-17] MEDS: DOXYCYCLINE 100 MG TAB/CAP PO SCH (10:00)
[2021-09-17] MEDS: CHOLECALCIFEROL (VITD3) 2,000 UNIT CAP/TAB PO SCH (10:08)
[2021-09-17] MEDS: DOBUTamine 1000MCG/ML 250 ML IV SCH (10:09)
[2021-09-17] MEDS ORDERED: CHOLESTYRAMINE 4 GM POWDER GT SCH (11:00)
[2021-09-17] MEDS: CHOLESTYRAMINE 4 GM POWDER PO SCH (12:21)
[2021-09-17] MEDS: ATORVASTATIN 20 MG TAB PO SCH (21:33)
[2021-09-18] MEDS: DOBUTamine 1000MCG/ML 250 ML IV SCH ×2 (00:19→15:55)
[2021-09-18] MEDS: FUROSEMIDE INJECTION 100 MG in SODIUM CHL 0.9% 100 ML IV SCH ×3 (00:23→21:24)
[2021-09-18] MEDS: CEFEPIME 2 GM in SODIUM CHL 0.9% 50 ML IV SCH (02:35)
[2021-09-18] MEDS: ONDANSETRON HCL 4 MG/2 ML VIAL IV PRN ×2 (03:31→15:56)
[2021-09-18 05:00] VITALS: BP 102/53
[2021-09-18] MEDS: VANCOMYCIN HCL 125MG/5ML ORAL SOL PO SCH (06:00)
[2021-09-18] MEDS: InsuLIN REG 1unit/0.01ml Soln (100units/ml) SC SCH ×4 (06:34→21:44)
[2021-09-18] MEDS: ACCU-CHEK COMFORT CURVE STRIP VI SCH ×4 (06:35→21:44)
[2021-09-18 08:00] VITALS: BP 93/65
[2021-09-18] MEDS: ASPirin 81 mg TAB PO SCH (10:00)
[2021-09-18] MEDS: ENOXAPARIN SOD 40 MG/0.4 ML SYRINGE SC SCH (10:00)
[2021-09-18] MEDS: CHOLESTYRAMINE 4 GM POWDER PO SCH (10:31)
[2021-09-18] MEDS: CHOLECALCIFEROL (VITD3) 2,000 UNIT CAP/TAB PO SCH (10:32)
[2021-09-18 11:48] LABS: Basophils # (auto) 0.1 10 ^3/uL (0-0.2); Eosinophils # (auto) 0.1 10 ^3/uL (0-0.8)
[2021-09-18 11:53] LABS: Basophils % (auto) 1.4 % (0.0-2.0); Eosinophils % (auto) 0.6 % (0.0-7.0); Hematocrit 28.3 % (36.0-46.0); Hemoglobin 9.2 g/dL (12.2-16.2); Lymphocytes # (auto) 1.8 10 ^3/uL (0.4-5.4); Lymphocytes % (auto) 19.6 % (10.0-50.0); Mean Corpuscular Hemoglobin 25.6 pg (28.0-32.0); Mean Corpuscular Hgb Conc. 32.6 g/dL (32.0-36.0); Mean Corpuscular Volume 78.5 fL (80.0-100.0); Monocytes % (auto) 11.3 % (0.0-12.0); Neutrophils % (auto) 67.1 % (37.0-80.0); Red Blood Cells 3.61 10^6/uL (4.0-5.20); Red Cell Distribution Width 20.5 % (11.8-14.3)
[2021-09-18 11:59] LABS: Potassium 3.5 mmol/L (3.5-5.1)
[2021-09-18 12:19] LABS: Albumin 2.3 g/dL (3.4-5.0); BUN/Creatinine Ratio 15.4; Bilirubin, Total 1.1 mg/dL (0.2-1.0); Calcium 8.2 mg/dL (8.5-10.1); Total Protein 6.6 g/dL (6.4-8.2)
[2021-09-18 12:30] VITALS: BP 117/75
[2021-09-18] MEDS ORDERED: POTASSIUM EFFERVESENT TAB 25 MEQ PO ONE (14:30)
[2021-09-18 16:52] VITALS: BP 98/73
[2021-09-18] MEDS: ATORVASTATIN 20 MG TAB PO SCH (21:48)
[2021-09-18 22:00] VITALS: BP 109/65
[2021-09-19] MEDS: DOBUTamine 1000MCG/ML 250 ML IV SCH ×2 (00:39→16:38)
[2021-09-19 05:00] VITALS: BP 99/73
[2021-09-19] MEDS: FUROSEMIDE INJECTION 100 MG in SODIUM CHL 0.9% 100 ML IV SCH ×2 (06:41→16:38)
[2021-09-19] MEDS: InsuLIN REG 1unit/0.01ml Soln (100units/ml) SC SCH ×4 (06:42→21:46)
[2021-09-19] MEDS: ACCU-CHEK COMFORT CURVE STRIP VI SCH ×4 (06:42→21:46)
[2021-09-19 09:21] VITALS: BP 112/62
[2021-09-19] MEDS: ASPirin 81 mg TAB PO SCH (09:59)
[2021-09-19] MEDS: CHOLECALCIFEROL (VITD3) 2,000 UNIT CAP/TAB PO SCH (09:59)
[2021-09-19] MEDS: ENOXAPARIN SOD 40 MG/0.4 ML SYRINGE SC SCH (10:00)
[2021-09-19] MEDS: CHOLESTYRAMINE 4 GM POWDER PO SCH (11:36)
[2021-09-19 13:08] VITALS: BP 109/61
[2021-09-19] MEDS ORDERED: SODIUM CHLORIDE 0.9% 250 ML IV ONE (16:45)
[2021-09-19] MEDS ORDERED: LABETALOL HCL 5 MG/ML 4ML SYRINGE IV ONE (16:45)
[2021-09-19 17:17] VITALS: BP 121/65
[2021-09-19] MEDS: HYDROcodone-ACET 5/325MG TAB PO PRN (20:48)
[2021-09-19] MEDS: ATORVASTATIN 20 MG TAB PO SCH (21:46)
[2021-09-19 22:00] VITALS: BP 110/68
[2021-09-20] MEDS: FUROSEMIDE INJECTION 100 MG in SODIUM CHL 0.9% 100 ML IV SCH ×2 (03:20→14:32)
[2021-09-20 05:00] VITALS: BP 101/63
[2021-09-20] MEDS: DOBUTamine 1000MCG/ML 250 ML IV SCH ×2 (05:57→20:53)
[2021-09-20] MEDS: InsuLIN REG 1unit/0.01ml Soln (100units/ml) SC SCH ×2 (05:58→11:30)
[2021-09-20] MEDS: ACCU-CHEK COMFORT CURVE STRIP VI SCH ×2 (05:58→11:55)
[2021-09-20 08:00] VITALS: BP 107/72
[2021-09-20] MEDS: ENOXAPARIN SOD 40 MG/0.4 ML SYRINGE SC SCH (10:00)
[2021-09-20] MEDS: HYDROcodone-ACET 5/325MG TAB PO PRN ×2 (10:03→21:02)
[2021-09-20] MEDS: ONDANSETRON HCL 4 MG/2 ML VIAL IV PRN ×2 (10:03→21:02)
[2021-09-20] MEDS: ASPirin 81 mg TAB PO SCH (10:03)
[2021-09-20] MEDS: CHOLECALCIFEROL (VITD3) 2,000 UNIT CAP/TAB PO SCH (10:04)
[2021-09-20 10:20] LABS: Potassium 3.1 mmol/L (3.5-5.1)
[2021-09-20 10:23] LABS: BUN/Creatinine Ratio 14.7
[2021-09-20 10:46] LABS: Basophils # (auto) 0.1 10 ^3/uL (0-0.2); Basophils % (auto) 1.3 % (0.0-2.0); Eosinophils # (auto) 0.1 10 ^3/uL (0-0.8); Eosinophils % (auto) 0.9 % (0.0-7.0); Hematocrit 28.5 % (36.0-46.0); Lymphocytes # (auto) 1.7 10 ^3/uL (0.4-5.4); Lymphocytes % (auto) 24.8 % (10.0-50.0); Mean Corpuscular Hemoglobin 25.1 pg (28.0-32.0); Mean Corpuscular Hgb Conc. 31.4 g/dL (32.0-36.0); Mean Corpuscular Volume 79.9 fL (80.0-100.0); Monocytes # (auto) 0.8 10 ^3/uL (0-1.3); Monocytes % (auto) 11.6 % (0.0-12.0); Neutrophils # (auto) 4.3 10 ^3/uL (1.6-8.6); Neutrophils % (auto) 61.4 % (37.0-80.0); Nucleated Red Blood Cells % 0.1 %; Red Blood Cells 3.57 10^6/uL (4.0-5.20); Red Cell Distribution Width 20.8 % (11.8-14.3)
[2021-09-20] MEDS: CHOLESTYRAMINE 4 GM POWDER PO SCH (11:55)
[2021-09-20 12:30] VITALS: BP 108/79
[2021-09-20] MEDS ORDERED: POTASSIUM CHL 20 Meq TABLET PO ONE (14:15)
[2021-09-20] MEDS ORDERED: diphenhdrAMINE HCL 25 MG CAP PO ONE (14:30)
[2021-09-20 14:51] LABS: INR 1.4 (0.9-1.15); Partial Thromboplastin Time 32.2 sec (23.6-33.0)
[2021-09-20 17:14] VITALS: BP 103/61
[2021-09-20] MEDS ORDERED: BUMETANIDE 2.5mg/10ml (0.25 mg/ml) INJ IV SCH (18:00)
[2021-09-20] MEDS ORDERED: diphenhdrAMINE HCL 25 MG CAP PO PRN (22:00)
[2021-09-20] MEDS: ATORVASTATIN 20 MG TAB PO SCH (23:01)
[2021-09-20] MEDS: HEPARIN SODIUM (PORCINE) 5000 UNITS/ML 1ML VIAL SC SCH (23:03)
[2021-09-21] MEDS: FUROSEMIDE INJECTION 100 MG in SODIUM CHL 0.9% 100 ML IV SCH ×3 (00:09→21:58)
[2021-09-21] MEDS ORDERED: METOPROLOL SUCCINATE XL 50 MG TAB PO ONE (04:00)
[2021-09-21 05:00] VITALS: BP 95/72
[2021-09-21] MEDS: HEPARIN SODIUM (PORCINE) 5000 UNITS/ML 1ML VIAL SC SCH ×3 (05:50→21:46)
[2021-09-21] MEDS ORDERED: dilTIAZem 25 MG/5 ML VIAL IV ONE (08:45)
[2021-09-21 09:00] VITALS: BP 108/72
[2021-09-21] MEDS: CHOLECALCIFEROL (VITD3) 2,000 UNIT CAP/TAB PO SCH (09:31)
[2021-09-21] MEDS: ASPirin 81 mg TAB PO SCH (09:31)
[2021-09-21] MEDS: HYDROcodone-ACET 5/325MG TAB PO PRN ×2 (10:31→21:54)
[2021-09-21] MEDS: dilTIAZem HCL 180MG ER CAP PO SCH (10:31)
[2021-09-21 10:32] LABS: Basophils # (auto) 0.1 10 ^3/uL (0-0.2); Eosinophils # (auto) 0.1 10 ^3/uL (0-0.8); Neutrophils # (auto) 4.6 10 ^3/uL (1.6-8.6); Nucleated Red Blood Cells % 0.1 %; Red Cell Distribution Width 20.9 % (11.8-14.3); White Blood Cell 7.6 10^3/uL (4.4-10.8)
[2021-09-21 10:36] LABS: Eosinophils % (auto) 1.2 % (0.0-7.0); Hemoglobin 9.8 g/dL (12.2-16.2); Lymphocytes % (auto) 25.8 % (10.0-50.0); Mean Corpuscular Hemoglobin 24.6 pg (28.0-32.0); Mean Corpuscular Hgb Conc. 30.7 g/dL (32.0-36.0); Mean Corpuscular Volume 80.3 fL (80.0-100.0); Monocytes # (auto) 0.8 10 ^3/uL (0-1.3); Monocytes % (auto) 10.7 % (0.0-12.0); Neutrophils % (auto) 61.3 % (37.0-80.0); Red Blood Cells 3.99 10^6/uL (4.0-5.20)
[2021-09-21 11:08] LABS: Potassium 3.9 mmol/L (3.5-5.1)
[2021-09-21 11:15] LABS: Albumin 2.8 g/dL (3.4-5.0); Bilirubin, Total 1.2 mg/dL (0.2-1.0); Calcium 8.2 mg/dL (8.5-10.1); Magnesium 1.6 mg/dL (1.6-2.6); Total Protein 7.3 g/dL (6.4-8.2)
[2021-09-21] MEDS: CHOLESTYRAMINE 4 GM POWDER PO SCH (12:33)
[2021-09-21 13:00] VITALS: BP 106/75
[2021-09-21 17:00] VITALS: BP 95/63
[2021-09-21] MEDS: ONDANSETRON HCL 4 MG/2 ML VIAL IV PRN (18:45)
[2021-09-21] MEDS: ATORVASTATIN 20 MG TAB PO SCH (21:44)
[2021-09-21 22:00] VITALS: BP 84/66
[2021-09-22 00:05] VITALS: BP 96/73
[2021-09-22 03:03] VITALS: BP 103/70
[2021-09-22 05:00] VITALS: BP 98/53
[2021-09-22] MEDS: FUROSEMIDE INJECTION 100 MG in SODIUM CHL 0.9% 100 ML IV SCH ×2 (05:00→15:44)
[2021-09-22] MEDS: HEPARIN SODIUM (PORCINE) 5000 UNITS/ML 1ML VIAL SC SCH ×3 (05:59→21:05)
[2021-09-22 09:00] VITALS: BP 97/65
[2021-09-22] MEDS: ASPirin 81 mg TAB PO SCH (09:26)
[2021-09-22] MEDS: CHOLECALCIFEROL (VITD3) 2,000 UNIT CAP/TAB PO SCH (09:28)
[2021-09-22] MEDS: dilTIAZem HCL 180MG ER CAP PO SCH (09:30)
[2021-09-22] MEDS: HYDROcodone-ACET 5/325MG TAB PO PRN ×2 (09:30→21:05)
[2021-09-22] MEDS: CHOLESTYRAMINE 4 GM POWDER PO SCH (11:33)
[2021-09-22 13:11] VITALS: BP 100/68
[2021-09-22] MEDS: ATORVASTATIN 20 MG TAB PO SCH (21:05)
[2021-09-22] MEDS: ONDANSETRON HCL 4 MG/2 ML VIAL IV PRN (21:17)
[2021-09-22 22:15] VITALS: BP 103/73
[2021-09-23] MEDS: FUROSEMIDE INJECTION 100 MG in SODIUM CHL 0.9% 100 ML IV SCH (02:16)
[2021-09-23 05:12] VITALS: BP 102/68
[2021-09-23] MEDS: HEPARIN SODIUM (PORCINE) 5000 UNITS/ML 1ML VIAL SC SCH ×3 (05:19→21:45)
[2021-09-23 09:00] VITALS: BP 110/67
[2021-09-23] MEDS: ASPirin 81 mg TAB PO SCH (09:24)
[2021-09-23] MEDS: CHOLECALCIFEROL (VITD3) 2,000 UNIT CAP/TAB PO SCH (09:24)
[2021-09-23] MEDS: CHOLESTYRAMINE 4 GM POWDER PO SCH (11:57)
[2021-09-23 13:00] VITALS: BP 102/63
[2021-09-23] MEDS: ONDANSETRON HCL 4 MG/2 ML VIAL IV PRN ×2 (13:29→17:39)
[2021-09-23 15:33] LABS: Basophils # (auto) 0.1 10 ^3/uL (0-0.2); Eosinophils # (auto) 0.1 10 ^3/uL (0-0.8); Eosinophils % (auto) 0.9 % (0.0-7.0); Hematocrit 30.3 % (36.0-46.0); Hemoglobin 9.5 g/dL (12.2-16.2); Neutrophils # (auto) 5.2 10 ^3/uL (1.6-8.6); Red Blood Cells 3.82 10^6/uL (4.0-5.20); White Blood Cell 8.4 10^3/uL (4.4-10.8)
[2021-09-23 15:36] LABS: Basophils % (auto) 1.7 % (0.0-2.0); Lymphocytes % (auto) 23.3 % (10.0-50.0); Mean Corpuscular Hemoglobin 24.8 pg (28.0-32.0); Mean Corpuscular Hgb Conc. 31.2 g/dL (32.0-36.0); Mean Corpuscular Volume 79.3 fL (80.0-100.0); Monocytes % (auto) 12.2 % (0.0-12.0); Neutrophils % (auto) 61.9 % (37.0-80.0); Nucleated Red Blood Cells % 0.2 %
[2021-09-23 15:40] LABS: Red Cell Distribution Width 20.8 % (11.8-14.3)
[2021-09-23 15:55] LABS: Albumin 2.8 g/dL (3.4-5.0); Calcium 8.3 mg/dL (8.5-10.1); Potassium 4.1 mmol/L (3.5-5.1)
[2021-09-23 16:00] LABS: BUN/Creatinine Ratio 12.4
[2021-09-23 16:27] VITALS: BP 112/70
[2021-09-23] MEDS ORDERED: BUMETANIDE 2.5mg/10ml (0.25 mg/ml) INJ IV SCH (18:00)
[2021-09-23] MEDS: ATORVASTATIN 20 MG TAB PO SCH (20:04)
[2021-09-23] MEDS: HYDROcodone-ACET 5/325MG TAB PO PRN (20:04)
[2021-09-23 21:51] VITALS: BP 104/69
[2021-09-24 04:58] VITALS: BP 100/58
[2021-09-24] MEDS: HEPARIN SODIUM (PORCINE) 5000 UNITS/ML 1ML VIAL SC SCH ×2 (06:13→14:20)
[2021-09-24 07:46] LABS: BUN/Creatinine Ratio 11.9; Calcium 8.8 mg/dL (8.5-10.1); Potassium 4.1 mmol/L (3.5-5.1)
[2021-09-24 08:59] VITALS: BP 102/85
[2021-09-24] MEDS: ASPirin 81 mg TAB PO SCH (09:59)
[2021-09-24] MEDS: CHOLECALCIFEROL (VITD3) 2,000 UNIT CAP/TAB PO SCH (10:00)
[2021-09-24] MEDS ORDERED: ASPI1TAB20 PO (10:58)
[2021-09-24] MEDS ORDERED: ATOR40TA52 PO (10:58)
[2021-09-24] MEDS ORDERED: FURO80TA3 PO (10:59)
[2021-09-24] MEDS ORDERED: LINA5TAB PO (11:08)
[2021-09-24] MEDS: CHOLESTYRAMINE 4 GM POWDER PO SCH (11:13)
[2021-09-24] MEDS ORDERED: GLIP5TAB12 PO (15:48)
== END 2021-09-24 16:15 | disposition home or self-care (01) | DRG 194 ==
LOC: ER 12:58 → TELE 17:01 → TELE-WESTW 22:45
PROVIDERS: ADMIT Hospitalist; ATTEND Internal Medicine Nephrology
PROC: 05HF33Z Insertion of Infusion Device into Left Cephalic Vein, Percutaneous Approach (ICD-10-PCS; 2021-09-07)
PROC: B54NZZA Ultrasonography of Left Upper Extremity Veins, Guidance (ICD-10-PCS; 2021-09-07)
PROC: 0W993ZZ Drainage of Right Pleural Cavity, Percutaneous Approach (ICD-10-PCS; principal; 2021-09-08)
DX: I13.0 Hypertensive heart and chronic kidney disease with heart failure and stage 1 through stage 4 chronic kidney disease, or unspecified chronic kidney disease (principal); J96.21 Acute and chronic respiratory failure with hypoxia; I21.A1 Myocardial infarction type 2; K85.90 Acute pancreatitis without necrosis or infection, unspecified; D68.9 Coagulation defect, unspecified; J18.9 Pneumonia, unspecified organism; J91.8 Pleural effusion in other conditions classified elsewhere; A04.72 Enterocolitis due to Clostridium difficile, not specified as recurrent; I50.43 Acute on chronic combined systolic (congestive) and diastolic (congestive) heart failure; N17.9 Acute kidney failure, unspecified; I42.0 Dilated cardiomyopathy; J44.0 Chronic obstructive pulmonary disease with (acute) lower respiratory infection; J45.901 Unspecified asthma with (acute) exacerbation; R18.8 Other ascites; E87.6 Hypokalemia; E11.65 Type 2 diabetes mellitus with hyperglycemia; E66.01 Morbid (severe) obesity due to excess calories; K21.9 Gastro-esophageal reflux disease without esophagitis; K76.0 Fatty (change of) liver, not elsewhere classified; D64.9 Anemia, unspecified; N18.31 Chronic kidney disease, stage 3a; Z68.41 Body mass index [BMI] 40.0-44.9, adult; E11.22 Type 2 diabetes mellitus with diabetic chronic kidney disease; E55.9 Vitamin D deficiency, unspecified; E78.5 Hyperlipidemia, unspecified; F15.90 Other stimulant use, unspecified, uncomplicated; I34.0 Nonrheumatic mitral (valve) insufficiency; I89.0 Lymphedema, not elsewhere classified; R79.89 Other specified abnormal findings of blood chemistry; R80.9 Proteinuria, unspecified; F19.10 Other psychoactive substance abuse, uncomplicated; J98.11 Atelectasis; R04.0 Epistaxis; Z20.822 Contact with and (suspected) exposure to COVID-19; Z83.3 Family history of diabetes mellitus; Z86.718 Personal history of other venous thrombosis and embolism; Z87.01 Personal history of pneumonia (recurrent); Z87.891 Personal history of nicotine dependence; Z91.19 Patient's noncompliance with other medical treatment and regimen; Z88.1 Allergy status to other antibiotic agents; I42.7 Cardiomyopathy due to drug and external agent; T50.905A Adverse effect of unspecified drugs, medicaments and biological substances, initial encounter; Y92.89 Other specified places as the place of occurrence of the external cause
CPT/HCPCS: 36415; 36600; 71045; 71275; 74176; 74177; 76705; 76775; 76830; 76856; 76942; 80048; 80053; 80061; 80307; 81001; 82150; 82306; 82570; 82784; 82805; 82962; 83036; 83520; 83690; 83735; 83880; 83883; 84100; 84155; 84156; 84165; 84300; 84443; 84484; 84702; 85007; 85025; 85027; 85610; 85652; 85730; 86038; 86141; 86160; 86225; 86256; 86334; 86703; 86705; 86709; 86803; 86850; 86900; 86901; 87040; 87081; 87086; 87205; 87340; 87426; 87493; 89051; 89060; 93005; 93306; 93970; 96365; 96375; 97110; 97116; 97530; 99291; G0378; J1815; J1956; J2405; J3490

== ENCOUNTER 2021-09-28 08:24 | Inpatient (IN) | payer MEDICAID ==
[~2021-09-28] VITALS: Ht 157.5 cm; Wt 131.9 kg
[~2021-09-28 08:24] MED LIST: ASPI1TAB20 PO; ATOR40TA52 PO; CARV3.1240 PO; FERR325T20 PO; FURO80TA3 PO; GLIP5TAB12 PO
[2021-09-28 10:13] LABS: Hematocrit 33.6 % (36.0-46.0); Hemoglobin 10.3 g/dL (12.2-16.2); Mean Corpuscular Hemoglobin 25.1 pg (28.0-32.0); Mean Corpuscular Hgb Conc. 30.8 g/dL (32.0-36.0); Mean Corpuscular Volume 81.3 fL (80.0-100.0); Red Blood Cells 4.13 10^6/uL (4.0-5.20)
[2021-09-28 10:19] LABS: Red Cell Distribution Width 20.2 % (11.8-14.3)
[2021-09-28 10:20] LABS: Band Neutrophils % (manual) 0; Basophils % (manual) 0 (0.0-2.0); Blast Cells 0; Metamyelocytes % 0; Myelocytes % 0; Promyelocytes % 0; Reactive Lymphocytes 0
[2021-09-28 10:27] LABS: INR 1.53 (0.9-1.15); Partial Thromboplastin Time 25.6 sec (23.6-33.0)
[2021-09-28 10:36] LABS: Albumin 3.1 g/dL (3.4-5.0); Calcium 8.6 mg/dL (8.5-10.1); Potassium 4.2 mmol/L (3.5-5.1)
[2021-09-28 10:41] LABS: BUN/Creatinine Ratio 12.9; Bilirubin, Total 1.8 mg/dL (0.2-1.0); Eosinophils % (manual) 4 (0-7); Lymphocytes % (manual) 49 (10.0-50.0); Monocytes % (manual) 1 (0-12)
[2021-09-28] MEDS ORDERED: FUROSEMIDE 40 MG/4 ML VIAL IV ONE (14:45)
[2021-09-28 15:05] LABS: Urine WBC None Seen /hpf (0 - 5)
[2021-09-28 15:27] LABS: Alcohol, Urine < 3.0 mg/dL (0-10); Amphetamine Screen, Urine NEGATIVE (NEGATIVE); Barbiturate Scree,Urine NEGATIVE (NEGATIVE); Benzodiazephine Screen, Urine NEGATIVE (NEGATIVE); Cannabinoid Screen, Urine POSITIVE (NEGATIVE); Cocaine Screen, Urine NEGATIVE (NEGATIVE); Phencyclidine Screen, Urine POSITIVE (NEGATIVE)
[2021-09-28 15:34] LABS: Opiate Scree,Urine NEGATIVE (NEGATIVE)
[2021-09-28] MEDS ORDERED: ONDANSETRON HCL 4 MG/2 ML VIAL IV ONE (16:15)
[2021-09-28 16:31] LABS: Urine Amorphous Crystal FEW /hpf (None Seen); Urine Bacteria NONE SEEN /hpf (None Seen); Urine Blood Negative /uL (Negative); Urine Hyaline Cast FEW /lpf (0 - 2); Urine Mucus FEW (None Seen); Urine Specific Gravity 1.015 (1.001-1.035)
[2021-09-28] MEDS ORDERED: MORPHINE SULFATE INJECTION 2 MG/ML SYRG IV ONE (18:15)
[2021-09-28] MEDS ORDERED: PROMETHAZINE HCL 25 MG/ML 1ML IV ONE (18:15)
[2021-09-28] MEDS ORDERED: MORPHINE SULFATE INJECTION 2 MG/ML SYRG IV PRN ×3 (19:00→22:15)
[2021-09-28] MEDS ORDERED: NITROGLYCERIN 0.4 MG SL TAB SL PRN ×2 (19:00→22:15)
[2021-09-28] MEDS ORDERED: METOPROLOL SUCCINATE XL 50 MG TAB PO ONE (22:00)
[2021-09-28] MEDS ORDERED: AMPICILLIN & SULBACTAM SODIUM 3 GM in SODIUM CHL 0.9% 100 ML IV SCH (22:00)
[2021-09-28] MEDS: AMPICILLIN & SULBACTAM SODIUM 3 GM in SODIUM CHL 0.9% 100 ML IV SCH (22:00)
[2021-09-28] MEDS ORDERED: PANTOPRAZOLE 40 MG/10 ML VIAL INJ IV ONE (22:00)
[2021-09-28] MEDS ORDERED: BUMETANIDE 2.5mg/10ml (0.25 mg/ml) INJ IV ONE (22:00)
[2021-09-28] MEDS ORDERED: IPRATROPIUM BROM 0.5 MG/2.5ML INH SOL NEB ONE (22:00)
[2021-09-28] MEDS ORDERED: HYDROcodone-ACET 5/325MG TAB PO PRN (22:15)
[2021-09-28] MEDS ORDERED: METOCLOPRAMIDE HCL 5MG/ml INJ 2ml VIAL IV PRN (22:15)
[2021-09-28] MEDS ORDERED: ALUM & MAG HYDROX-SIMETH LIQ(MAALOX) 30 ML PO PRN (22:15)
[2021-09-28] MEDS ORDERED: DEXTROSE (50%) 50ML SYRG IV PRN (22:15)
[2021-09-28] MEDS ORDERED: TEMAZEPAM 15 MG CAP PO PRN (22:15)
[2021-09-28] MEDS ORDERED: ALBUMIN 25% 100 ML IV ONE (22:15)
[2021-09-28] MEDS ORDERED: DOCUSATE SOD 100 MG CAP PO PRN (22:15)
[2021-09-28] MEDS: MAGNESIUM SULFATE 1GM/100ML 100 ML IV SCH (22:45)
[2021-09-28] MEDS: ATORVASTATIN 20 MG TAB PO SCH (22:45)
[2021-09-28] MEDS: methylPREDNISolone SOD SUCC 40 MG/ML VL IV SCH (22:45)
[2021-09-28] MEDS: MAGNESIUM OXIDE 400 MG TAB PO SCH (22:45)
[2021-09-28] MEDS: HYDROcodone-ACET 5/325MG TAB PO PRN (22:57)
[2021-09-29 00:30] VITALS: BP 108/70
[2021-09-29] MEDS: MAGNESIUM SULFATE 1GM/100ML 100 ML IV SCH ×3 (01:00→01:17)
[2021-09-29] MEDS: IPRATROPIUM BROM 0.5 MG/2.5ML INH SOL NEB SCH ×6 (01:08→22:47)
[2021-09-29 01:36] LABS: Magnesium 1.7 mg/dL (1.6-2.6)
[2021-09-29 01:42] LABS: Phosphorus 4.2 mg/dL (2.5-4.90)
[2021-09-29 02:22] LABS: Free T3 1.86 pg/mL (2.3-4.2); Free T4 (Free Thyroxine) 1.19 ng/dL (0.89-1.76)
[2021-09-29 05:00] VITALS: BP 99/78
[2021-09-29] MEDS: AMPICILLIN & SULBACTAM SODIUM 3 GM in SODIUM CHL 0.9% 100 ML IV SCH (06:00)
[2021-09-29] MEDS: methylPREDNISolone SOD SUCC 40 MG/ML VL IV SCH (06:00)
[2021-09-29] MEDS: BUMETANIDE 2.5mg/10ml (0.25 mg/ml) INJ IV SCH ×2 (06:00→17:20)
[2021-09-29] MEDS ORDERED: FUROSEMIDE 20 MG/2 ML VIAL IV SCH (06:00)
[2021-09-29 06:56] LABS: Basophils # (auto) 0 10 ^3/uL (0-0.2); Basophils % (auto) 0.5 % (0.0-2.0); Eosinophils # (auto) 0 10 ^3/uL (0-0.8); Eosinophils % (auto) 0.2 % (0.0-7.0); Hematocrit 32.4 % (36.0-46.0); Hemoglobin 10.1 g/dL (12.2-16.2); Lymphocytes % (auto) 16.1 % (10.0-50.0); Mean Corpuscular Hemoglobin 24.9 pg (28.0-32.0); Mean Corpuscular Hgb Conc. 31.1 g/dL (32.0-36.0); Mean Corpuscular Volume 80.1 fL (80.0-100.0); Monocytes # (auto) 0.2 10 ^3/uL (0-1.3); Neutrophils # (auto) 4.7 10 ^3/uL (1.6-8.6); Neutrophils % (auto) 80.2 % (37.0-80.0); Nucleated Red Blood Cells % 0.5 %; Red Blood Cells 4.05 10^6/uL (4.0-5.20); Red Cell Distribution Width 20.8 % (11.8-14.3); White Blood Cell 5.9 10^3/uL (4.4-10.8)
[2021-09-29] MEDS: InsuLIN REG 1unit/0.01ml Soln (100units/ml) SC SCH ×4 (07:00→22:23)
[2021-09-29] MEDS: ACCU-CHEK COMFORT CURVE STRIP VI SCH ×4 (07:00→22:22)
[2021-09-29 07:19] LABS: INR 1.71 (0.9-1.15)
[2021-09-29 07:21] LABS: Albumin 3.1 g/dL (3.4-5.0); Calcium 8.7 mg/dL (8.5-10.1); Potassium 4.8 mmol/L (3.5-5.1)
[2021-09-29 07:28] LABS: BUN/Creatinine Ratio 12.1; Bilirubin, Total 2.4 mg/dL (0.2-1.0); Total Protein 7.8 g/dL (6.4-8.2)
[2021-09-29] MEDS ORDERED: FERROUS SULFATE 325mg EC TAB PO SCH (08:00)
[2021-09-29 08:30] VITALS: BP 105/76
[2021-09-29] MEDS: PANTOPRAZOLE 40 MG/10 ML VIAL INJ IV SCH (09:52)
[2021-09-29] MEDS: MAGNESIUM OXIDE 400 MG TAB PO SCH (09:52)
[2021-09-29] MEDS: ASPirin 81 mg TAB PO SCH (09:52)
[2021-09-29] MEDS: ENOXAPARIN SOD 30 MG/0.3 ML SYRINGE SC SCH (09:52)
[2021-09-29] MEDS: ONDANSETRON HCL 4 MG/2 ML VIAL IV PRN (09:54)
[2021-09-29] MEDS: HYDROcodone-ACET 5/325MG TAB PO PRN (09:55)
[2021-09-29] MEDS ORDERED: BENAZEPRIL HCL 10 MG TAB PO SCH (10:00)
[2021-09-29] MEDS ORDERED: METOPROLOL SUCCINATE XL 50 MG TAB PO SCH (10:00)
[2021-09-29 13:00] VITALS: BP 98/72
[2021-09-29] MEDS: DOBUTamine 1000MCG/ML 250 ML IV SCH (16:18)
[2021-09-29 16:41] LABS: Urine Amorphous Crystal FEW /hpf (None Seen); Urine Bacteria FEW /hpf (None Seen); Urine Blood 2+ /uL (Negative); Urine Hyaline Cast MOD /lpf (0 - 2); Urine Mucus FEW (None Seen); Urine Specific Gravity 1.014 (1.001-1.035); Urine WBC 40 /hpf (0 - 5); Urine WBC Clumps PRESENT /hpf (None Seen)
[2021-09-29 17:00] VITALS: BP 123/51
[2021-09-29 17:07] LABS: Protein, Urine 173.4 mg/dL (0.0-11.9)
[2021-09-29] MEDS: LEVALBUTEROL HCL 1.25 MG/3 ML NEB NEB SCH ×2 (19:12→22:47)
[2021-09-29 22:00] VITALS: BP 93/68
[2021-09-29] MEDS: ATORVASTATIN 20 MG TAB PO SCH (22:22)
[2021-09-29] MEDS: CARVEDILOL 3.125 MG TAB PO SCH (22:22)
[2021-09-30] MEDS: IPRATROPIUM BROM 0.5 MG/2.5ML INH SOL NEB SCH ×6 (02:28→22:36)
[2021-09-30] MEDS: LEVALBUTEROL HCL 1.25 MG/3 ML NEB NEB SCH ×6 (02:28→22:37)
[2021-09-30 05:00] VITALS: BP 100/62
[2021-09-30] MEDS: ACCU-CHEK COMFORT CURVE STRIP VI SCH ×4 (06:33→22:46)
[2021-09-30] MEDS: BUMETANIDE 2.5mg/10ml (0.25 mg/ml) INJ IV SCH ×2 (06:33→17:21)
[2021-09-30] MEDS: DOBUTamine 1000MCG/ML 250 ML IV SCH ×2 (06:41→22:47)
[2021-09-30] MEDS: InsuLIN REG 1unit/0.01ml Soln (100units/ml) SC SCH ×4 (07:10→23:08)
[2021-09-30] MEDS: HYDROcodone-ACET 5/325MG TAB PO PRN ×2 (07:12→12:23)
[2021-09-30 08:01] LABS: Calcium 8.4 mg/dL (8.5-10.1); Potassium 4.8 mmol/L (3.5-5.1)
[2021-09-30 08:03] LABS: BUN/Creatinine Ratio 12.7
[2021-09-30 09:00] VITALS: BP 83/47
[2021-09-30] MEDS: ASPirin 81 mg TAB PO SCH (10:24)
[2021-09-30] MEDS: ENOXAPARIN SOD 30 MG/0.3 ML SYRINGE SC SCH (10:25)
[2021-09-30] MEDS: PANTOPRAZOLE 40 MG/10 ML VIAL INJ IV SCH (10:25)
[2021-09-30] MEDS: CARVEDILOL 3.125 MG TAB PO SCH ×2 (10:25→22:00)
[2021-09-30 13:00] VITALS: BP 88/50
[2021-09-30 17:00] VITALS: BP 110/65
[2021-09-30] MEDS: ALBUMIN 25% 100 ML IV SCH (17:21)
[2021-09-30 19:48] LABS: INR 1.4 (0.9-1.15); Partial Thromboplastin Time 32.9 sec (23.6-33.0)
[2021-09-30 22:00] VITALS: BP 88/55
[2021-09-30] MEDS: ATORVASTATIN 20 MG TAB PO SCH (22:45)
[2021-10-01] VITALS (10 sets, daily range): BP systolic 88–106; BP diastolic 52–68
[2021-10-01] MEDS: IPRATROPIUM BROM 0.5 MG/2.5ML INH SOL NEB SCH ×7 (02:00→23:03)
[2021-10-01] MEDS: LEVALBUTEROL HCL 1.25 MG/3 ML NEB NEB SCH ×7 (02:00→23:03)
[2021-10-01] MEDS: BUMETANIDE 2.5mg/10ml (0.25 mg/ml) INJ IV SCH (05:55)
[2021-10-01] MEDS: ACCU-CHEK COMFORT CURVE STRIP VI SCH ×4 (05:56→20:54)
[2021-10-01] MEDS: InsuLIN REG 1unit/0.01ml Soln (100units/ml) SC SCH ×4 (05:56→21:00)
[2021-10-01] MEDS: ALBUMIN 25% 100 ML IV SCH ×2 (06:09→13:08)
[2021-10-01] MEDS: DOBUTamine 1000MCG/ML 250 ML IV SCH ×2 (06:15→19:57)
[2021-10-01 07:17] LABS: Calcium 8.3 mg/dL (8.5-10.1); Potassium 4.8 mmol/L (3.5-5.1)
[2021-10-01] MEDS ORDERED: IODIXANOL 320MG/ML 100ML BTL IV ONE ×3 (07:41→09:41)
[2021-10-01] MEDS ORDERED: LIDOCAINE 2%HCL (LOCAL ANESTH.) INJ 20ML MDV ONE ×3 (07:41→09:41)
[2021-10-01] MEDS ORDERED: ANGIOMAX 250 MG VIAL IV ONE (07:46)
[2021-10-01] MEDS ORDERED: fentaNYL CITRATE 100 MCG/2 ML VL ONE (07:46)
[2021-10-01] MEDS ORDERED: SODIUM CHL 0.9% 0 ML ONE (07:46)
[2021-10-01] MEDS ORDERED: MIDAZOLAM HCL 2MG/2ML 2ml VIAL (1mg/ml) ONE (07:46)
[2021-10-01] MEDS ORDERED: HEPARIN SODIUM (PORCINE) 5000 UNITS/ML 1ML VIAL ONE (10:17)
[2021-10-01] MEDS: CARVEDILOL 3.125 MG TAB PO SCH ×2 (10:54→20:50)
[2021-10-01] MEDS: ASPirin 81 mg TAB PO SCH (10:54)
[2021-10-01] MEDS: PANTOPRAZOLE 40 MG/10 ML VIAL INJ IV SCH (10:54)
[2021-10-01] MEDS ORDERED: DOBUTamine 1000MCG/ML 250 ML IV ONE (12:02)
[2021-10-01 12:53] LABS: Hepatitis A Ab IgM Negative
[2021-10-01] MEDS ORDERED: ALBUMIN 25% 100 ML IV SCH (13:00)
[2021-10-01 13:13] LABS: Hepatitis B Core IgM Negative
[2021-10-01 13:15] LABS: Hepatitis C Antibody Negative (Negative)
[2021-10-01] MEDS: ATORVASTATIN 20 MG TAB PO SCH (20:54)
[2021-10-02] MEDS: LEVALBUTEROL HCL 1.25 MG/3 ML NEB NEB SCH ×6 (03:12→21:42)
[2021-10-02] MEDS: IPRATROPIUM BROM 0.5 MG/2.5ML INH SOL NEB SCH ×6 (03:12→21:41)
[2021-10-02 05:00] VITALS: BP 111/72
[2021-10-02] MEDS: ACCU-CHEK COMFORT CURVE STRIP VI SCH ×4 (06:08→22:00)
[2021-10-02] MEDS: InsuLIN REG 1unit/0.01ml Soln (100units/ml) SC SCH ×4 (06:08→22:00)
[2021-10-02] MEDS: DOBUTamine 1000MCG/ML 250 ML IV SCH ×2 (06:15→18:07)
[2021-10-02 08:00] VITALS: BP 101/72
[2021-10-02 08:31] LABS: Potassium 3.6 mmol/L (3.5-5.1)
[2021-10-02 08:41] LABS: BUN/Creatinine Ratio 11.5; Calcium 8.3 mg/dL (8.5-10.1)
[2021-10-02 09:00] VITALS: BP 101/72
[2021-10-02] MEDS: CARVEDILOL 3.125 MG TAB PO SCH (10:00)
[2021-10-02] MEDS: ASPirin 81 mg TAB PO SCH (10:18)
[2021-10-02] MEDS: PANTOPRAZOLE 40 MG/10 ML VIAL INJ IV SCH (10:19)
[2021-10-02] MEDS: ONDANSETRON HCL 4 MG/2 ML VIAL IV PRN (10:32)
[2021-10-02 13:00] VITALS: BP 92/54
[2021-10-02 20:00] VITALS: BP 114/74
[2021-10-02] MEDS ORDERED: MORPHINE SULFATE INJECTION 2 MG/ML SYRG IV PRN (21:00)
[2021-10-02 22:00] VITALS: BP 103/64
[2021-10-02] MEDS: ATORVASTATIN 20 MG TAB PO SCH (22:17)
[2021-10-02] MEDS: HYDROcodone-ACET 5/325MG TAB PO PRN (22:35)
[2021-10-03] VITALS (7 sets, daily range): BP systolic 93–115; BP diastolic 53–77
[2021-10-03] MEDS: LEVALBUTEROL HCL 1.25 MG/3 ML NEB NEB SCH ×6 (02:05→22:23)
[2021-10-03] MEDS: IPRATROPIUM BROM 0.5 MG/2.5ML INH SOL NEB SCH ×6 (02:05→22:23)
[2021-10-03] MEDS: InsuLIN REG 1unit/0.01ml Soln (100units/ml) SC SCH ×4 (07:00→22:08)
[2021-10-03] MEDS: ACCU-CHEK COMFORT CURVE STRIP VI SCH ×4 (08:15→22:08)
[2021-10-03] MEDS: ASPirin 81 mg TAB PO SCH (09:21)
[2021-10-03] MEDS: PANTOPRAZOLE 40 MG/10 ML VIAL INJ IV SCH (09:21)
[2021-10-03] MEDS: HYDROcodone-ACET 5/325MG TAB PO PRN ×2 (09:30→17:42)
[2021-10-03 09:32] LABS: Basophils # (auto) 0 10 ^3/uL (0-0.2); Basophils % (auto) 0.5 % (0.0-2.0); Eosinophils # (auto) 0 10 ^3/uL (0-0.8); Eosinophils % (auto) 0.7 % (0.0-7.0); Hematocrit 29.1 % (36.0-46.0); Hemoglobin 8.9 g/dL (12.2-16.2); Lymphocytes # (auto) 0.6 10 ^3/uL (0.4-5.4); Lymphocytes % (auto) 8.5 % (10.0-50.0); Mean Corpuscular Hemoglobin 24.3 pg (28.0-32.0); Mean Corpuscular Hgb Conc. 30.5 g/dL (32.0-36.0); Mean Corpuscular Volume 79.5 fL (80.0-100.0); Monocytes # (auto) 0.6 10 ^3/uL (0-1.3); Monocytes % (auto) 8.2 % (0.0-12.0); Neutrophils # (auto) 5.6 10 ^3/uL (1.6-8.6); Neutrophils % (auto) 82.1 % (37.0-80.0); Nucleated Red Blood Cells % 0.2 %; Red Blood Cells 3.66 10^6/uL (4.0-5.20); Red Cell Distribution Width 20.4 % (11.8-14.3); White Blood Cell 6.8 10^3/uL (4.4-10.8)
[2021-10-03] MEDS: DOBUTamine 1000MCG/ML 250 ML IV SCH (09:37)
[2021-10-03 11:35] LABS: Potassium 4.7 mmol/L (3.5-5.1)
[2021-10-03 11:40] LABS: BUN/Creatinine Ratio 10.3; Calcium 8.1 mg/dL (8.5-10.1)
[2021-10-03] MEDS ORDERED: DOPamine 1600MCG/ML D5W 250 ML IV SCH (13:00)
[2021-10-03] MEDS: ATORVASTATIN 20 MG TAB PO SCH (22:04)
[2021-10-04] VITALS (15 sets, daily range): BP systolic 81–125; BP diastolic 30–73
[2021-10-04] MEDS: IPRATROPIUM BROM 0.5 MG/2.5ML INH SOL NEB SCH ×6 (02:10→22:00)
[2021-10-04] MEDS: LEVALBUTEROL HCL 1.25 MG/3 ML NEB NEB SCH ×6 (02:10→22:00)
[2021-10-04] MEDS: DOBUTamine 1000MCG/ML 250 ML IV SCH ×2 (04:30→18:32)
[2021-10-04] MEDS: InsuLIN REG 1unit/0.01ml Soln (100units/ml) SC SCH ×4 (06:41→22:00)
[2021-10-04] MEDS: ACCU-CHEK COMFORT CURVE STRIP VI SCH ×4 (06:43→22:41)
[2021-10-04 08:25] LABS: Calcium 8.1 mg/dL (8.5-10.1); Potassium 3.6 mmol/L (3.5-5.1)
[2021-10-04 08:28] LABS: BUN/Creatinine Ratio 12.3
[2021-10-04] MEDS: PANTOPRAZOLE 40 MG/10 ML VIAL INJ IV SCH (09:26)
[2021-10-04] MEDS: ASPirin 81 mg TAB PO SCH (09:26)
[2021-10-04] MEDS ORDERED: SODIUM BICARBONATE 8.4% INJ 50ML SYRINGE ONE (09:35)
[2021-10-04] MEDS: HYDROcodone-ACET 5/325MG TAB PO PRN ×3 (11:38→22:55)
[2021-10-04] MEDS ORDERED: LABETALOL HCL 5 MG/ML 4ML SYRINGE IV ONE (17:30)
[2021-10-04] MEDS: ATORVASTATIN 20 MG TAB PO SCH (22:40)
[2021-10-05] MEDS: LEVALBUTEROL HCL 1.25 MG/3 ML NEB NEB SCH ×6 (02:00→22:16)
[2021-10-05] MEDS: IPRATROPIUM BROM 0.5 MG/2.5ML INH SOL NEB SCH ×6 (02:00→22:16)
[2021-10-05 05:00] VITALS: BP 101/58
[2021-10-05 06:29] LABS: BUN/Creatinine Ratio 11.9; Calcium 8.4 mg/dL (8.5-10.1); Potassium 3.7 mmol/L (3.5-5.1)
[2021-10-05] MEDS: HYDROcodone-ACET 5/325MG TAB PO PRN ×2 (06:36→19:18)
[2021-10-05] MEDS: InsuLIN REG 1unit/0.01ml Soln (100units/ml) SC SCH ×4 (06:38→21:58)
[2021-10-05] MEDS: DOBUTamine 1000MCG/ML 250 ML IV SCH (06:38)
[2021-10-05] MEDS: ACCU-CHEK COMFORT CURVE STRIP VI SCH ×4 (06:39→21:59)
[2021-10-05 08:57] VITALS: BP 106/64
[2021-10-05] MEDS ORDERED: CARVEDILOL 3.125 MG TAB PO ONE (10:45)
[2021-10-05] MEDS: ASPirin 81 mg TAB PO SCH (10:57)
[2021-10-05] MEDS: PANTOPRAZOLE 40 MG/10 ML VIAL INJ IV SCH (10:57)
[2021-10-05 13:00] VITALS: BP 103/72
[2021-10-05 17:00] VITALS: BP 105/57
[2021-10-05] MEDS: FUROSEMIDE 40 MG/4 ML VIAL IV SCH (18:33)
[2021-10-05 21:15] VITALS: BP 104/63
[2021-10-05] MEDS: ATORVASTATIN 20 MG TAB PO SCH (21:51)
[2021-10-05] MEDS: CARVEDILOL 3.125 MG TAB PO SCH (21:53)
[2021-10-05] MEDS: POTASSIUM CHL 10 Meq TABLET PO SCH (21:58)
[2021-10-06] MEDS: LEVALBUTEROL HCL 1.25 MG/3 ML NEB NEB SCH ×6 (01:59→22:14)
[2021-10-06] MEDS: IPRATROPIUM BROM 0.5 MG/2.5ML INH SOL NEB SCH ×6 (01:59→22:14)
[2021-10-06 05:00] VITALS: BP 109/70
[2021-10-06] MEDS: ACCU-CHEK COMFORT CURVE STRIP VI SCH ×4 (06:25→22:14)
[2021-10-06] MEDS: InsuLIN REG 1unit/0.01ml Soln (100units/ml) SC SCH ×4 (06:25→22:00)
[2021-10-06] MEDS: FUROSEMIDE 40 MG/4 ML VIAL IV SCH ×2 (06:25→17:59)
[2021-10-06 08:50] VITALS: BP 100/80
[2021-10-06] MEDS: CARVEDILOL 3.125 MG TAB PO SCH ×2 (10:02→22:08)
[2021-10-06] MEDS: ASPirin 81 mg TAB PO SCH (10:02)
[2021-10-06] MEDS: PANTOPRAZOLE 40 MG TAB PO SCH (10:02)
[2021-10-06] MEDS: POTASSIUM CHL 10 Meq TABLET PO SCH ×2 (10:03→22:09)
[2021-10-06 10:08] LABS: BUN/Creatinine Ratio 14.1; Calcium 8.7 mg/dL (8.5-10.1); Potassium 3.9 mmol/L (3.5-5.1)
[2021-10-06] MEDS: HYDROcodone-ACET 5/325MG TAB PO PRN (10:44)
[2021-10-06] MEDS ORDERED: metOLazone 5 MG TAB PO ONE (12:00)
[2021-10-06 12:55] VITALS: BP 111/87
[2021-10-06] MEDS ORDERED: POTASSIUM CHL 10 Meq TABLET PO ONE (13:00)
[2021-10-06 18:05] VITALS: BP 93/75
[2021-10-06 22:00] VITALS: BP 105/69
[2021-10-06] MEDS: ATORVASTATIN 20 MG TAB PO SCH (22:09)
[2021-10-06] MEDS: ONDANSETRON HCL 4 MG/2 ML VIAL IV PRN (22:23)
[2021-10-07] MEDS: LEVALBUTEROL HCL 1.25 MG/3 ML NEB NEB SCH ×4 (02:00→21:43)
[2021-10-07] MEDS: IPRATROPIUM BROM 0.5 MG/2.5ML INH SOL NEB SCH ×4 (02:00→21:44)
[2021-10-07] MEDS: HYDROcodone-ACET 5/325MG TAB PO PRN ×2 (03:01→21:36)
[2021-10-07 05:00] VITALS: BP 110/79
[2021-10-07] MEDS: FUROSEMIDE 40 MG/4 ML VIAL IV SCH ×2 (06:25→17:46)
[2021-10-07] MEDS: InsuLIN REG 1unit/0.01ml Soln (100units/ml) SC SCH ×4 (06:29→21:53)
[2021-10-07] MEDS: ACCU-CHEK COMFORT CURVE STRIP VI SCH ×4 (06:30→21:54)
[2021-10-07 09:00] VITALS: BP 112/71
[2021-10-07] MEDS ORDERED: ALBUMIN 25% 100 ML IV ONE (10:00)
[2021-10-07] MEDS: ASPirin 81 mg TAB PO SCH (12:26)
[2021-10-07] MEDS: PANTOPRAZOLE 40 MG TAB PO SCH (12:26)
[2021-10-07] MEDS: POTASSIUM CHL 10 Meq TABLET PO SCH ×2 (12:27→21:43)
[2021-10-07] MEDS: CARVEDILOL 3.125 MG TAB PO SCH ×2 (12:27→21:41)
[2021-10-07 13:00] VITALS: BP 103/78
[2021-10-07 16:37] LABS: Basophils # (auto) 0.1 10 ^3/uL (0-0.2); Monocytes # (auto) 1.1 10 ^3/uL (0-1.3); Nucleated Red Blood Cells % 0.3 %; White Blood Cell 8.8 10^3/uL (4.4-10.8)
[2021-10-07 16:38] LABS: BUN/Creatinine Ratio 12.2; Calcium 8.3 mg/dL (8.5-10.1); Potassium 4.2 mmol/L (3.5-5.1)
[2021-10-07 16:39] LABS: Basophils % (auto) 1.5 % (0.0-2.0); Eosinophils # (auto) 0.2 10 ^3/uL (0-0.8); Eosinophils % (auto) 1.7 % (0.0-7.0); Hemoglobin 9.2 g/dL (12.2-16.2); Lymphocytes # (auto) 1.9 10 ^3/uL (0.4-5.4); Lymphocytes % (auto) 22.1 % (10.0-50.0); Mean Corpuscular Hemoglobin 25.6 pg (28.0-32.0); Mean Corpuscular Hgb Conc. 32.7 g/dL (32.0-36.0); Neutrophils # (auto) 5.5 10 ^3/uL (1.6-8.6); Neutrophils % (auto) 62.7 % (37.0-80.0); Red Blood Cells 3.58 10^6/uL (4.0-5.20); Red Cell Distribution Width 19.5 % (11.8-14.3)
[2021-10-07 16:41] VITALS: BP 93/69
[2021-10-07] MEDS ORDERED: EPOETIN ALFA-EPBX 4,000 UNIT/ML VIAL SC ONE (21:00)
[2021-10-07] MEDS: ATORVASTATIN 20 MG TAB PO SCH (21:41)
[2021-10-07 22:00] VITALS: BP 110/65
[2021-10-08] MEDS: IPRATROPIUM BROM 0.5 MG/2.5ML INH SOL NEB SCH ×6 (01:39→23:00)
[2021-10-08] MEDS: LEVALBUTEROL HCL 1.25 MG/3 ML NEB NEB SCH ×6 (01:39→23:00)
[2021-10-08 05:00] VITALS: BP 89/64
[2021-10-08] MEDS: FUROSEMIDE 40 MG/4 ML VIAL IV SCH ×2 (06:00→18:00)
[2021-10-08 06:22] LABS: Potassium 4.4 mmol/L (3.5-5.1)
[2021-10-08 06:26] LABS: BUN/Creatinine Ratio 12.4; Calcium 8.7 mg/dL (8.5-10.1)
[2021-10-08] MEDS: InsuLIN REG 1unit/0.01ml Soln (100units/ml) SC SCH ×4 (06:42→21:57)
[2021-10-08] MEDS: ACCU-CHEK COMFORT CURVE STRIP VI SCH ×4 (06:42→21:57)
[2021-10-08 09:00] VITALS: BP 108/76
[2021-10-08] MEDS: PANTOPRAZOLE 40 MG TAB PO SCH (11:25)
[2021-10-08] MEDS: CARVEDILOL 3.125 MG TAB PO SCH ×2 (11:25→22:18)
[2021-10-08] MEDS: POTASSIUM CHL 10 Meq TABLET PO SCH ×2 (11:25→22:18)
[2021-10-08] MEDS: ASPirin 81 mg TAB PO SCH (11:25)
[2021-10-08] MEDS: HYDROcodone-ACET 5/325MG TAB PO PRN ×2 (11:26→18:49)
[2021-10-08] MEDS ORDERED: metOLazone 5 MG TAB PO ONE (15:00)
[2021-10-08 16:34] LABS: INR 1.38 (0.9-1.15); Partial Thromboplastin Time 24.4 sec (23.6-33.0)
[2021-10-08 17:00] VITALS: BP 86/54
[2021-10-08 22:00] VITALS: BP 100/60
[2021-10-08] MEDS: ATORVASTATIN 20 MG TAB PO SCH (22:19)
[2021-10-09] VITALS (8 sets, daily range): BP systolic 87–108; BP diastolic 58–74
[2021-10-09] MEDS: LEVALBUTEROL HCL 1.25 MG/3 ML NEB NEB SCH ×6 (02:53→22:00)
[2021-10-09] MEDS: IPRATROPIUM BROM 0.5 MG/2.5ML INH SOL NEB SCH ×6 (02:53→22:30)
[2021-10-09] MEDS: InsuLIN REG 1unit/0.01ml Soln (100units/ml) SC SCH ×4 (06:18→22:00)
[2021-10-09] MEDS: ACCU-CHEK COMFORT CURVE STRIP VI SCH ×4 (06:27→22:00)
[2021-10-09] MEDS: FUROSEMIDE 40 MG/4 ML VIAL IV SCH ×2 (06:27→18:00)
[2021-10-09 06:54] LABS: Eosinophils # (auto) 0.1 10 ^3/uL (0-0.8); Lymphocytes # (auto) 2.2 10 ^3/uL (0.4-5.4); Mean Corpuscular Hemoglobin 24.7 pg (28.0-32.0); Mean Corpuscular Hgb Conc. 31.5 g/dL (32.0-36.0); Monocytes # (auto) 1.2 10 ^3/uL (0-1.3); Neutrophils % (auto) 57.9 % (37.0-80.0); Red Cell Distribution Width 19.7 % (11.8-14.3); White Blood Cell 8.6 10^3/uL (4.4-10.8)
[2021-10-09 06:57] LABS: Basophils # (auto) 0.2 10 ^3/uL (0-0.2); Basophils % (auto) 1.8 % (0.0-2.0); Eosinophils % (auto) 1.4 % (0.0-7.0); Hematocrit 28.8 % (36.0-46.0); Hemoglobin 9.1 g/dL (12.2-16.2); Lymphocytes % (auto) 25.1 % (10.0-50.0); Mean Corpuscular Volume 78.3 fL (80.0-100.0); Monocytes % (auto) 13.8 % (0.0-12.0); Nucleated Red Blood Cells % 0.7 %; Red Blood Cells 3.67 10^6/uL (4.0-5.20)
[2021-10-09] MEDS: ASPirin 81 mg TAB PO SCH (09:48)
[2021-10-09] MEDS: POTASSIUM CHL 10 Meq TABLET PO SCH ×2 (09:49→22:00)
[2021-10-09] MEDS: PANTOPRAZOLE 40 MG TAB PO SCH (09:49)
[2021-10-09] MEDS: CARVEDILOL 3.125 MG TAB PO SCH ×2 (09:49→22:00)
[2021-10-09] MEDS: HYDROcodone-ACET 5/325MG TAB PO PRN (09:50)
[2021-10-09] MEDS: ATORVASTATIN 20 MG TAB PO SCH (22:00)
[2021-10-10] VITALS (7 sets, daily range): BP systolic 91–127; BP diastolic 40–73
[2021-10-10] MEDS: LEVALBUTEROL HCL 1.25 MG/3 ML NEB NEB SCH ×6 (02:06→21:42)
[2021-10-10] MEDS: IPRATROPIUM BROM 0.5 MG/2.5ML INH SOL NEB SCH ×2 (02:06→09:52)
[2021-10-10] MEDS: InsuLIN REG 1unit/0.01ml Soln (100units/ml) SC SCH ×4 (06:02→22:00)
[2021-10-10] MEDS: FUROSEMIDE 40 MG/4 ML VIAL IV SCH (06:02)
[2021-10-10] MEDS: ACCU-CHEK COMFORT CURVE STRIP VI SCH ×4 (06:04→22:00)
[2021-10-10] MEDS: HYDROcodone-ACET 5/325MG TAB PO PRN (08:27)
[2021-10-10] MEDS ORDERED: BUMETANIDE 2.5mg/10ml (0.25 mg/ml) INJ IV ONE (09:30)
[2021-10-10] MEDS: PANTOPRAZOLE 40 MG TAB PO SCH (09:47)
[2021-10-10] MEDS: CARVEDILOL 3.125 MG TAB PO SCH ×2 (09:47→22:00)
[2021-10-10] MEDS: ASPirin 81 mg TAB PO SCH (09:48)
[2021-10-10 11:12] LABS: BUN/Creatinine Ratio 10.7; Calcium 8.8 mg/dL (8.5-10.1); Potassium 5.5 mmol/L (3.5-5.1)
[2021-10-10] MEDS ORDERED: InsuLIN REG 1unit/0.01ml Soln (100units/ml) IV ONE (15:00)
[2021-10-10] MEDS ORDERED: DEXTROSE (50%) 50ML SYRG IV ONE (15:00)
[2021-10-10] MEDS: BUMETANIDE INJECTION 12.5 MG in GIVE UN-DILUTED 0 ML IV SCH (15:00)
[2021-10-10] MEDS: SODIUM ZIRCONIUM CYCL 10 GM PAK PO SCH ×2 (15:34→22:01)
[2021-10-10] MEDS: ATORVASTATIN 20 MG TAB PO SCH (22:00)
[2021-10-11] MEDS: IPRATROPIUM BROM 0.5 MG/2.5ML INH SOL NEB PRN ×6 (01:54→22:38)
[2021-10-11] MEDS: LEVALBUTEROL HCL 1.25 MG/3 ML NEB NEB SCH ×6 (01:54→22:38)
[2021-10-11] MEDS ORDERED: BUMETANIDE INJECTION 50 ML ONE (03:31)
[2021-10-11] MEDS: BUMETANIDE INJECTION 12.5 MG in GIVE UN-DILUTED 0 ML IV SCH (03:44)
[2021-10-11 05:00] VITALS: BP 93/61
[2021-10-11] MEDS: HYDROcodone-ACET 5/325MG TAB PO PRN ×3 (05:30→21:47)
[2021-10-11] MEDS: SODIUM ZIRCONIUM CYCL 10 GM PAK PO SCH ×3 (06:05→21:39)
[2021-10-11] MEDS: ACCU-CHEK COMFORT CURVE STRIP VI SCH ×4 (06:39→21:40)
[2021-10-11] MEDS: InsuLIN REG 1unit/0.01ml Soln (100units/ml) SC SCH ×4 (06:39→21:47)
[2021-10-11 08:00] VITALS: BP 91/56
[2021-10-11] MEDS: ASPirin 81 mg TAB PO SCH (09:18)
[2021-10-11] MEDS: CARVEDILOL 3.125 MG TAB PO SCH ×2 (09:18→21:39)
[2021-10-11] MEDS: PANTOPRAZOLE 40 MG TAB PO SCH (09:18)
[2021-10-11 13:00] VITALS: BP 87/52
[2021-10-11] MEDS ORDERED: SODIUM CHL 0.9% 1000 ML BAG XX ONE ×2 (13:00→14:15)
[2021-10-11] MEDS: ALBUMIN 25% 100 ML IV SCH ×2 (13:00→14:00)
[2021-10-11] MEDS ORDERED: ALBUMIN 25% 100 ML IV ONE (13:45)
[2021-10-11 14:25] LABS: BUN/Creatinine Ratio 10.3; Calcium 7.8 mg/dL (8.5-10.1); Potassium 4.1 mmol/L (3.5-5.1)
[2021-10-11 17:00] VITALS: BP 101/69
[2021-10-11] MEDS: BUMETANIDE 2.5mg/10ml (0.25 mg/ml) INJ IV SCH (20:18)
[2021-10-11] MEDS: ATORVASTATIN 20 MG TAB PO SCH (21:39)
[2021-10-11 22:00] VITALS: BP 109/75
[2021-10-12] MEDS: IPRATROPIUM BROM 0.5 MG/2.5ML INH SOL NEB PRN ×5 (02:13→22:58)
[2021-10-12] MEDS: LEVALBUTEROL HCL 1.25 MG/3 ML NEB NEB SCH ×6 (02:14→22:58)
[2021-10-12 05:00] VITALS: BP 91/72
[2021-10-12] MEDS: SODIUM ZIRCONIUM CYCL 10 GM PAK PO SCH (05:52)
[2021-10-12] MEDS: BUMETANIDE 2.5mg/10ml (0.25 mg/ml) INJ IV SCH ×2 (05:53→17:44)
[2021-10-12] MEDS: ACCU-CHEK COMFORT CURVE STRIP VI SCH ×4 (06:35→21:03)
[2021-10-12] MEDS: InsuLIN REG 1unit/0.01ml Soln (100units/ml) SC SCH ×4 (06:35→21:03)
[2021-10-12 08:34] LABS: BUN/Creatinine Ratio 8.6; Calcium 8.7 mg/dL (8.5-10.1); Potassium 4.6 mmol/L (3.5-5.1)
[2021-10-12 09:00] VITALS: BP 96/70
[2021-10-12] MEDS: ASPirin 81 mg TAB PO SCH (09:32)
[2021-10-12] MEDS: CARVEDILOL 3.125 MG TAB PO SCH ×2 (09:33→21:07)
[2021-10-12] MEDS: PANTOPRAZOLE 40 MG TAB PO SCH (09:33)
[2021-10-12 13:00] VITALS: BP 104/65
[2021-10-12] MEDS ORDERED: MIDODRINE HCL 10 MG TAB PO ONE (16:45)
[2021-10-12] MEDS ORDERED: ALBUMIN 25% 100 ML IV ONE (16:45)
[2021-10-12] MEDS ORDERED: SODIUM CHL 0.9% 1000 ML BAG XX ONE (16:45)
[2021-10-12 17:00] VITALS: BP 92/65
[2021-10-12] MEDS: ALBUMIN 25% 100 ML IV SCH ×2 (17:00→17:48)
[2021-10-12 20:00] VITALS: BP 107/38
[2021-10-12] MEDS: ATORVASTATIN 20 MG TAB PO SCH (21:03)
[2021-10-13] MEDS: HYDROcodone-ACET 5/325MG TAB PO PRN ×4 (01:28→23:03)
[2021-10-13] MEDS: IPRATROPIUM BROM 0.5 MG/2.5ML INH SOL NEB PRN ×6 (02:13→22:53)
[2021-10-13] MEDS: LEVALBUTEROL HCL 1.25 MG/3 ML NEB NEB SCH ×6 (02:13→22:53)
[2021-10-13] MEDS: InsuLIN REG 1unit/0.01ml Soln (100units/ml) SC SCH ×4 (05:13→21:10)
[2021-10-13] MEDS: BUMETANIDE 2.5mg/10ml (0.25 mg/ml) INJ IV SCH ×2 (05:13→16:51)
[2021-10-13] MEDS: ACCU-CHEK COMFORT CURVE STRIP VI SCH ×4 (05:14→21:11)
[2021-10-13 05:25] VITALS: BP 96/62
[2021-10-13 06:55] LABS: Hemoglobin 7.7 g/dL (12.2-16.2)
[2021-10-13 06:57] LABS: Hematocrit 24.4 % (36.0-46.0)
[2021-10-13 07:22] LABS: Potassium 4.9 mmol/L (3.5-5.1)
[2021-10-13 07:26] LABS: BUN/Creatinine Ratio 7.7
[2021-10-13] MEDS ORDERED: MIDAZOLAM HCL 2MG/2ML 2ml VIAL (1mg/ml) ONE (07:36)
[2021-10-13] MEDS ORDERED: MEPERIDINE HCL (25 MG/ML) 1ML VIAL ONE (07:36)
[2021-10-13] MEDS ORDERED: fentaNYL CITRATE 100 MCG/2 ML VL ONE (07:36)
[2021-10-13 08:23] VITALS: BP 89/51
[2021-10-13] MEDS: PANTOPRAZOLE 40 MG TAB PO SCH (08:54)
[2021-10-13] MEDS: ASPirin 81 mg TAB PO SCH (08:54)
[2021-10-13] MEDS ORDERED: DexAMETHasone SOD PHOS 10MG/1ML VIAL INJ ONE (09:05)
[2021-10-13] MEDS ORDERED: PROPOFOL 10 MG/ML 20 ML IV ONE (09:05)
[2021-10-13] MEDS: CARVEDILOL 3.125 MG TAB PO SCH ×2 (10:00→21:10)
[2021-10-13 11:39] VITALS: BP 83/55
[2021-10-13 16:49] VITALS: BP 85/50
[2021-10-13] MEDS: ATORVASTATIN 20 MG TAB PO SCH (21:26)
[2021-10-13 21:39] VITALS: BP 96/52
[2021-10-14] MEDS: LEVALBUTEROL HCL 1.25 MG/3 ML NEB NEB SCH ×3 (01:51→10:29)
[2021-10-14] MEDS: IPRATROPIUM BROM 0.5 MG/2.5ML INH SOL NEB PRN ×3 (01:51→10:29)
[2021-10-14 05:00] VITALS: BP 99/68
[2021-10-14] MEDS: BUMETANIDE 2.5mg/10ml (0.25 mg/ml) INJ IV SCH (05:58)
[2021-10-14] MEDS: ACCU-CHEK COMFORT CURVE STRIP VI SCH ×2 (05:59→11:13)
[2021-10-14] MEDS: InsuLIN REG 1unit/0.01ml Soln (100units/ml) SC SCH ×2 (05:59→11:12)
[2021-10-14 06:25] LABS: Potassium 4.8 mmol/L (3.5-5.1)
[2021-10-14 06:37] LABS: BUN/Creatinine Ratio 7.2; Calcium 9.2 mg/dL (8.5-10.1)
[2021-10-14 08:34] VITALS: BP 95/67
[2021-10-14] MEDS: PANTOPRAZOLE 40 MG TAB PO SCH (09:25)
[2021-10-14] MEDS: ASPirin 81 mg TAB PO SCH (09:25)
[2021-10-14] MEDS: CARVEDILOL 3.125 MG TAB PO SCH (09:26)
[2021-10-14] MEDS ORDERED: LIDOCAINE 2%HCL (LOCAL ANESTH.) INJ 20ML MDV ONE (10:35)
[2021-10-14] MEDS ORDERED: ALBUAER3 IN (10:36)
== END 2021-10-14 12:29 | disposition hospice, home (50) | DRG 192 ==
LOC: ER 08:24 → TELE 18:52 → TELE-WESTW 23:34
PROVIDERS: ADMIT Hospitalist; ATTEND Internal Medicine Nephrology
PROC: 0JH63XZ Insertion of Tunneled Vascular Access Device into Chest Subcutaneous Tissue and Fascia, Percutaneous Approach (ICD-10-PCS; principal; 2021-10-01)
PROC: 4A023N8 Measurement of Cardiac Sampling and Pressure, Bilateral, Percutaneous Approach (ICD-10-PCS; 2021-10-01)
PROC: 02H633Z Insertion of Infusion Device into Right Atrium, Percutaneous Approach (ICD-10-PCS; 2021-10-01)
PROC: B518YZA Fluoroscopy of Superior Vena Cava using Other Contrast, Guidance (ICD-10-PCS; 2021-10-01)
PROC: B548ZZA Ultrasonography of Superior Vena Cava, Guidance (ICD-10-PCS; 2021-10-01)
PROC: B211YZZ Fluoroscopy of Multiple Coronary Arteries using Other Contrast (ICD-10-PCS; 2021-10-01)
PROC: B215YZZ Fluoroscopy of Left Heart using Other Contrast (ICD-10-PCS; 2021-10-01)
PROC: 5A1D70Z Performance of Urinary Filtration, Intermittent, Less than 6 Hours Per Day (ICD-10-PCS; 2021-10-02)
PROC: 5A1D70Z Performance of Urinary Filtration, Intermittent, Less than 6 Hours Per Day (ICD-10-PCS; 2021-10-04)
PROC: 5A1D70Z Performance of Urinary Filtration, Intermittent, Less than 6 Hours Per Day (ICD-10-PCS; 2021-10-07)
PROC: 5A1D70Z Performance of Urinary Filtration, Intermittent, Less than 6 Hours Per Day (ICD-10-PCS; 2021-10-11)
PROC: 5A1D70Z Performance of Urinary Filtration, Intermittent, Less than 6 Hours Per Day (ICD-10-PCS; 2021-10-12)
DX: I13.2 Hypertensive heart and chronic kidney disease with heart failure and with stage 5 chronic kidney disease, or end stage renal disease (principal); J96.01 Acute respiratory failure with hypoxia; I21.A1 Myocardial infarction type 2; K81.0 Acute cholecystitis; D63.1 Anemia in chronic kidney disease; D68.9 Coagulation defect, unspecified; I27.20 Pulmonary hypertension, unspecified; I42.7 Cardiomyopathy due to drug and external agent; K21.9 Gastro-esophageal reflux disease without esophagitis; E66.01 Morbid (severe) obesity due to excess calories; K29.70 Gastritis, unspecified, without bleeding; Z20.822 Contact with and (suspected) exposure to COVID-19; I50.84 End stage heart failure; E11.22 Type 2 diabetes mellitus with diabetic chronic kidney disease; E78.5 Hyperlipidemia, unspecified; E87.5 Hyperkalemia; F15.10 Other stimulant abuse, uncomplicated; I25.10 Atherosclerotic heart disease of native coronary artery without angina pectoris; I34.0 Nonrheumatic mitral (valve) insufficiency; I48.91 Unspecified atrial fibrillation; F19.10 Other psychoactive substance abuse, uncomplicated; J44.9 Chronic obstructive pulmonary disease, unspecified; K74.60 Unspecified cirrhosis of liver; T82.838A Hemorrhage due to vascular prosthetic devices, implants and grafts, initial encounter; Y83.8 Other surgical procedures as the cause of abnormal reaction of the patient, or of later complication, without mention of misadventure at the time of the procedure; Z68.43 Body mass index [BMI] 50.0-59.9, adult; Z91.19 Patient's noncompliance with other medical treatment and regimen; Z79.82 Long term (current) use of aspirin; Z79.899 Other long term (current) drug therapy; Z83.3 Family history of diabetes mellitus; Z86.718 Personal history of other venous thrombosis and embolism; Z99.2 Dependence on renal dialysis; Z99.81 Dependence on supplemental oxygen; I50.23 Acute on chronic systolic (congestive) heart failure; N17.9 Acute kidney failure, unspecified
CPT/HCPCS: 36415; 51702; 71045; 71046; 76000; 76604; 76705; 76942; 80048; 80053; 80074; 80307; 81001; 82570; 82962; 83735; 83880; 84100; 84156; 84300; 84439; 84443; 84481; 84484; 84702; 85007; 85014; 85018; 85025; 85027; 85379; 85610; 85730; 86850; 86900; 86901; 87040; 87070; 87081; 87086; 87426; 87880; 90935; 93005; 94640; 96374; 96375; 99152; 99153; 99291; C1751; C9113; G0378; J1100; J1642; J1815; J2250; J2405; J2704; J3490; P9047; Q9967